=== PATIENT | female | born 1945 | race Caucasian/White ===

== ENCOUNTER → 2019-06-01 09:54 | Outpatient (BNVA) | payer MEDICARE, OTHER, SELFPAY | PROVIDERS: Family Provider Nurse Practitioner Family; PCP Nurse Practitioner Family; Visit Provider Registered Nurse | DX: Z79.4 Long term (current) use of insulin (principal); E11.9 Type 2 diabetes mellitus without complications | CPT/HCPCS: 80053; 83036 ==

== ENCOUNTER → 2019-06-16 09:24 | Outpatient (BNVA) | payer MEDICARE, OTHER, SELFPAY | PROVIDERS: Family Provider Nurse Practitioner Family; PCP Nurse Practitioner Family; Visit Provider Family Medicine | DX: E83.52 Hypercalcemia (principal); I10 Essential (primary) hypertension; R74.8 Abnormal levels of other serum enzymes; E03.9 Hypothyroidism, unspecified; Z11.59 Encounter for screening for other viral diseases; E11.69 Type 2 diabetes mellitus with other specified complication; E78.2 Mixed hyperlipidemia; E11.65 Type 2 diabetes mellitus with hyperglycemia; R79.89 Other specified abnormal findings of blood chemistry | CPT/HCPCS: 80053; 84439; 84443; 84481; 86803 ==

== ENCOUNTER → 2019-09-21 18:00 | Outpatient (BNVA) | payer MEDICARE, OTHER, SELFPAY | PROVIDERS: Family Provider Nurse Practitioner Family; PCP Registered Nurse; Visit Provider Family Medicine | DX: R74.8 Abnormal levels of other serum enzymes (principal); E11.65 Type 2 diabetes mellitus with hyperglycemia; E78.00 Pure hypercholesterolemia, unspecified; I10 Essential (primary) hypertension; E03.9 Hypothyroidism, unspecified; Z79.01 Long term (current) use of anticoagulants | CPT/HCPCS: 80053; 83036; 85610 ==

== ENCOUNTER 2019-12-09 10:05 | Inpatient (IN) | payer MEDICARE, OTHER, SELFPAY ==
[2019-12-09] VITALS (12 sets, daily range): BP systolic 104–159; BP diastolic 52–75; PULSE 66–80; RESP 15–18; TEMP 36.7–37.1; O2SAT 92–98; BMI 30.7
--- NOTE | 2019-12-09 10:06 | ED_ITS ---
HPI - Neuro Symptoms/Deficit General: Chief Complaint: Neuro Symptoms/Deficit Stated Complaint: STROKE ALERT Time Seen by Provider: 12/09/19 10:06 History of Present Illness: HPI Narrative: 74-year-old female presents to the emergency room with weakness in the right arm. She had previous had a stroke in July 2015 she went to bed last night around 10 PM and her normal self woke up this morning unable to move the right arm and some generalized right-sided w eakness. On presentation CT initially was done. Onset (ago): hour(s) Time: 10:00 Last Observed Normal: 22:00 Location: speech, dysarthria and right arm History of same: Yes Severity: severe Quality: weak Relieving factors: none Exacerbating factors: none Context: sudden onset (Woke up this morning) On Anticoagulants: No Associated symptoms: Deny chest pain, cough, diaphoresis, fevers/chills, headache(s), anorexia, malaise, nausea, seizures, short of breath, syncope, tingling, vertigo, vomiting, weakness or other Treatments Prior to Arrival: none Review of Systems Const: Denies: malaise or diaphoresis ENMT: Denies: throat pain, ear or mastoid pain, nasal discharge or nasal congestion Card: Denies: chest pain or syncope Resp: Denies: dyspnea, productive cough or non-productive cough GI: Denies: nausea or vomiting : Denies: flank pain, difficulty voiding, dysuria, urinary frequency or urinary urgency Skin/Breast: Denies: rash or pruritus Neuro: Denies: headache(s) or vertigo PFSH ED PFSH: Medical History Combined hyperlipidemia associated with type 2 diabetes mellitus Diabetes History of CVA (cerebrovascular accident) Hypertension Surgical History Hx of bladder repair surgery Hx of section Hx of cholecystectomy Hx of hysterectomy Family History Mother Clotting disorder Diabetes Cancer Father Cancer Mother Arthritis Social History Smoking and tobacco status: former smoker Quit status (tobacco): has quit using tobacco Year quit tobacco: 1988 Second hand smoke exposure: No Alcohol intake: never Desire information about alcohol rehabilitation?: No Desire information about substance/drug rehabilitation?: No Current occupational status: retired History of recent travel: No NIH stroke score NIHSS: Level Of Consciousness - 1a: 0 Level Of Consciousness Questions - 1b: Both Correct Level Of Consciousness Commands - 1c: Both Correct Best Gaze - 2: Normal Visual Agee - 3: No Visual Loss Facial Palsy - 4: Minor Paralysis Motor Arm Right - 5: No Effort Against [place] Motor Arm Left - 5: No Drift Motor Leg Right - 6: No Drift Motor Leg Left - 6: No Drift Limb Ataxia - 7: Present In One Limb Sensory - 8: Normal Best Language - 9: No Aphasia Dysarthia - 10: Mild/Moderate Dysarthia Extinction And Inattention - 11: 0 Score: Total Score: 6 Physical Exam Const: COMMON NORMALS: average body habitus GENERAL APPEARANCE: cooperative, comfortable, well kempt and well developed ORIENTATION/CONSCIOUSNESS: Yes awake HENMT: COMMON NORMALS: normocephalic, atraumatic and EAC's normal HEAD & SCALP: normocephalic and atraumatic EXTERNAL AUDITORY CANAL: EAC's normal Eye: COMMON NORMALS: Equal, round and reactive pupils present, EOMs intact bilaterally, conjunctivae normal and no scleral icterus CONJUNCTIVA: Yes conjunctivae normal PUPIL: Yes Equal, round and reactive pupils present Neck/C-Spine: COMMON NORMALS: full ROM, no lymphadenopathy, supple and Thyroid normal THYROID: Thyroid normal and asymmetrical Lymph: LYMPHATIC: no lymphadenopathy noted Resp: COMMON NORMALS: normal respiratory effort, No retractions, No use of accessory muscles and clear to auscultation bilaterally AUSCULTATION: clear to auscultation bilaterally Cardio: COMMON NORMALS: regular rate and regular rhythm RATE: regular rate RHYTHM: regular rhythm HEART SOUNDS: no murmurs GI: COMMON NORMALS: Normal to inspection, nondistended, normoactive bowel sounds present, Soft to palpation and No hepatosplenomegaly present PALPATION: Yes Soft to palpation and Yes No hepatosplenomegaly present : COMMON NORMALS: Yes no CVA tenderness BLADDER/KIDNEY EXAM: Yes no CVA tenderness Back/Pelvis: COMMON NORMALS: no CVA tenderness LUMBAR SPINE/LOWER BACK: Yes normal to inspection Extremity: COMMON NORMALS: no clubbing, cyanosis or edema, no calf tenderness and no pedal edema NARRATIVE EXTREMITY EXAM: Weakness in the right arm. Arm is essentially flail with no attempt against gravity or no evidence of carton forming machine adjuster strength. Psych: APPEARANCE: Yes well kempt Skin: COMMON NORMALS: no rashes or lesions noted and turgor normal GENERAL SKIN EXAM: no rashes or lesions noted and turgor normal Course Vital Signs: Vital signs: Vital Signs Temperature 98.5 F 12/10/19 11:53 Pulse Rate 88 12/10/19 11:53 Respiratory Rate 17 12/10/19 11:53 Blood Pressure 121/68 12/10/19 11:53 Pulse Oximetry 92 12/10/19 11:53 MDM - Neuro Symptoms/Deficit MDM Narrative: Medical decision making narrative: Discussed with hospitalist discussed Dr. Sosa she is not a candidate for any kind intervention will admit her for evaluation of extent of new deficits and potential causes. Lab Data: Labs: Lab Results 12/09/19 12/09/19 12/09/19 Range/Units 09:45 09:45 09:45 WBC 6.6 (4.0-10.0) 10^3/ uL RBC 4.22 (4.1-5.3) 10^6/u L Hgb 13.6 (11.5-15.3) g/dL Hct 41.8 (37.0-47.0) % MCV 99.1 H (81-99) fL MCH 32.2 (28.0-34.0) pg MCHC 32.5 (30.0-36.0) g/dL RDW 13.0 (12.1-15.1) % Plt Count 328 (130-400) 10^3/c mm MPV 10.7 H (7.4-10.4) fL Neut % (Auto) 51.3 % Lymph % (Auto) 24.7 % [place] % (Auto) 6.3 % Eos % (Auto) 14.5 % Baso % (Auto) 1.7 % Neut # (Auto) 3.40 (1.8-7.7) 10^3/u L Lymph # (Auto) 1.6 (0.8-4.8) 10^3/u L [place] # (Auto) 0.4 (0.2-0.9) 10^3/u L Eos # (Auto) 1.0 H (0.0-0.8) 10^3/u L Baso # (Auto) 0.1 (0.0-0.1) 10^3/u L Nucleated RBC % (a uto) 0 % Nucleated RBCs # 0.0 /100WBC PT 12.50 (12.1-14.9) SECO NDS INR 0.91 (0.8-1.2) APTT 23.9 (23.9-36.7) SECO NDS Sodium 141 (136-145) mmol/L Potassium 4.4 (3.5-5.1) mmol/L Chloride 105 (98-107) mmol/L Carbon Dioxide 24 (22-29) mmol/L Anion Gap 16.4 (5-19) BUN 19 (8-23) mg/dL Creatinine 1.2 H (0.5-0.9) mg/dL GFR Calculation Not Reportable Glucose 197 H (65-115) mg/dL POC Glucose (70-110) mg/dL Calculated Osmolal ity 294 (285-295) mOsm/k g Calcium 9.9 (8.5-10.5) mg/dL Total Bilirubin 0.3 (0.15-1.2) mg/dL AST 54 H (0-32) U/L ALT 49 H (0-33) U/L Alkaline Phosphata se 62 (35-105) IU/L Total Protein 7.3 (6.6-8.7) g/dL Albumin 4.3 (3.5-5.2) g/dL Globulin 3.0 (1.3-4.6) g/dL TSH (0.27-4.20) uIU/ mL 12/09/19 12/09/19 Range/Units 09:45 10:47 WBC (4.0-10.0) 10^3/ uL RBC (4.1-5.3) 10^6/u L Hgb (11.5-15.3) g/dL Hct (37.0-47.0) % MCV (81-99) fL MCH (28.0-34.0) pg MCHC (30.0-36.0) g/dL RDW (12.1-15.1) % Plt Count (130-400) 10^3/c mm MPV (7.4-10.4) fL Neut % (Auto) % Lymph % (Auto) % [place] % (Auto) % Eos % (Auto) % Baso % (Auto) % Neut # (Auto) (1.8-7.7) 10^3/u L Lymph # (Auto) (0.8-4.8) 10^3/u L [place] # (Auto) (0.2-0.9) 10^3/u L Eos # (Auto) (0.0-0.8) 10^3/u L Baso # (Auto) (0.0-0.1) 10^3/u L Nucleated RBC % (a uto) % Nucleated RBCs # /100WBC PT (12.1-14.9) SECO NDS INR (0.8-1.2) APTT (23.9-36.7) SECO NDS Sodium (136-145) mmol/L Potassium (3.5-5.1) mmol/L Chloride (98-107) mmol/L Carbon Dioxide (22-29) mmol/L Anion Gap (5-19) BUN (8-23) mg/dL Creatinine (0.5-0.9) mg/dL GFR Calculation Glucose (65-115) mg/dL POC Glucose 200 (70-110) mg/dL Calculated Osmolal ity (285-295) mOsm/k g Calcium (8.5-10.5) mg/dL Total Bilirubin (0.15-1.2) mg/dL AST (0-32) U/L ALT (0-33) U/L Alkaline Phosphata se (35-105) IU/L Total Protein (6.6-8.7) g/dL Albumin (3.5-5.2) g/dL Globulin (1.3-4.6) g/dL TSH 4.71 H (0.27-4.20) uIU/ mL Discharge Plan Discharge Admit Provider: Imelda Sharma Condition: Stable Discharge Orders: Discharge Order (Routine); Ordered 12/10/19 Ordered By: Imelda Sharma Discharge Diet: Cardiac and Diabetic Discharge Activity: Increase activity as tolerated Discharge Date/Time: 12/09/19 12:33 Coding Level of Care Code ED Automation Engineering Technician for Chg Fwd Exam Comprehensive
--- NOTE | 2019-12-09 10:10 | CT_ITS ---
WS: [id number] CT HEAD NONCONTRAST HISTORY: POSS CVA TECHNIQUE: Contiguous axial imaging performed through the brain in 2.5 mm imaging. Bone and soft tiss ue windows. Sagittal and coronal reformats reviewed. All CT scans at [facility] use at ast one of these dose optimization techniques: automated exposure control; mA and/or kV adjustment pe r patient size (includes targeted exams where dose is matched to clinical indication); or iterative r econstruction. DLP: 751.12 mGy-cm. COMPARISON: 04/17/2018 No acute intracranial hemorrhage, midline shift or mass effect. Mild atrophy and mild chronic ischemic disease. Prior lacunar infarct along the LEFT centrum semioval e ovale. Ventricles: Ventricles are very mildly prominent and similar to the prior examination. Paranasal sinuses: As visualized are clear. Mastoid air cells: Well pneumatized. Calvarium and scalp: Skull is intact with no soft tissue edema or swelling. CT/CT head wo con* [id number] IMPRESSION: 1. No acute intracranial hemorrhage or edema. 2. Mild atrophy and chronic ischemic disease and LEFT centrum semiovale lacuna r infarct. Notified Johnny Terrell DO at 12/09/2019 10:19 AM.
--- NOTE | 2019-12-09 10:24 | CT_ITS ---
WS: [id number] CT ANGIOGRAM CEREBRAL AND CAROTID ARTERIES HISTORY: POSS CVA TECHNIQUE: CT angiogram is performed of the carotid and cerebral arteries. During arterial injection imaging is obtained from the skull vertex to the aortic arch in 1.25 mm imaging. Coronal and sagittal reformats are submitted. Additional multi planar reformats of the carotid and cerebral arteries are submitted, MIP imaging also reviewed. NASCET criteria utilized. All CT scans at [facility] use at least one of these dose optimization techniques: automated exposure control; mA and/or kV ad justment per patient size (includes targeted exams where dose is matched to clinical indication); or iterative reconstruction. CONTRAST: Omnipaque 350; 95 mL IV. DLP: 2338.58 mGy.cm COMPARISON: 07/14/2015 Carotid Angiogram: Right carotid: Common carotid artery: Arises normally from the innominate artery. No significant plaque or stenosis. Internal carotid artery: Minimal atherosclerotic plaque. Mild atherosclerotic plaque with stenosis le ss than 16%. External carotid artery: Patent. Left carotid: Common carotid artery: Arises normally from the aorta. No significant plaque or stenosis. Internal carotid artery: Small amount of plaque which is noncalcified in the proximal ICA. Stenosis c alculated at 29%. External carotid artery: Patent. Right vertebral artery: Unremarkable. Left vertebral artery: Unremarkable. Arises normally from the subclavian artery. Subclavian arteries: No stenosis or significant abnormality. Upper thorax: Normal. Thyroid gland: Normal. Osseous structures: Moderate degenerative spondylitic changes in the cervical spine. CEREBRAL ANGIOGRAM: Intracranial vertebral arteries: Normal with no significant atherosclerosis. Basilar artery: No significant stenosis or occlusion. No aneurysm. Intracranial Internal carotid arteries: Demonstrates no significant stenosis or plaque. Middle cerebral arteries: Normal. Anterior cerebral arteries and ACOM: Normal. Posterior cerebral arteries and PCOM's: Normal. Dural venous sinuses are normally enhancing. Mastoid air cells: Normal. Paranasal sinuses: Minimal maxillary sinusitis. Calvarium: Normal. CT/CT angio headneck* [id number] IMPRESSION: 1. No significant carotid artery stenosis. 2. Mild atherosclerotic plaque in the proximal extracranial carotid arteries. LEFT ICA stenosis 29%. 3. Unremarkable [place].
[2019-12-09] MEDS: iodixanol 320 mg/mL 100mL Btl IV (10:41)
[2019-12-09 10:57] LABS: Glucose Point of Care 200 mg/dL (70-110)
--- NOTE | 2019-12-09 10:57 | ECG_ITS ---
[facility] Test Date: 2019-12-09 Pat Name: Carol Ellis Department: Room: Gender: Female Hvac Technician: : 1945 Requested By: Johnny Rodriguez Order Number: [id number] Rick MD: Selam Sommer M.D. Measurements Intervals [place] Rate: 70 P: 56 OK: 180 QRS: 59 QRSD: 90 T: 59 QT: 417 QTc: 452 Interpretive Statements SINUS RHYTHM SEPTAL MYOCARDIAL INFARCTION , OF INDETERMINATE AGE [40+ ms Q WAVE IN V1/V2] Compared to ECG 07/14/2015 11:17:52 Myocardial infarct finding now present Electronically Signed On 12-09-2019 18:50:30 CDT by Selam Sommer M.D. [email or web address] [email or web address] county [id number] f
[2019-12-09 11:10] LABS: Basophils # 0.1 10^3/uL (0.0-0.1); Basophils % 1.7 %; Eosinophils % 14.5 %; Hematocrit 41.8 % (37.0-47.0); Hemoglobin 13.6 g/dL (11.5-15.3); INR 0.91 (0.8-1.2); Lymphocytes # 1.6 10^3/uL (0.8-4.8); Lymphocytes % 24.7 %; Mean Corpuscular HGB Conc 32.5 g/dL (30.0-36.0); Mean Corpuscular Hemoglobin 32.2 pg (28.0-34.0); Mean Corpuscular Volume 99.1 fL (81-99); Mean Platelet Volume 10.7 fL (7.4-10.4); Monocytes # 0.4 10^3/uL (0.2-0.9); Monocytes % 6.3 %; Neutrophils % 51.3 %; Nucleated Red Blood Cells % 0 %; Partial Thromboplastin Time 23.9 SECONDS (23.9-36.7); Platelet Count 328 10^3/cmm (130-400); Red Blood Count 4.22 10^6/uL (4.1-5.3); White Blood Count 6.6 10^3/uL (4.0-10.0)
[2019-12-09 12:10] LABS: Alanine Aminotransferase 49 U/L (0-33); Albumin Level 4.3 g/dL (3.5-5.2); Alkaline Phosphatase 62 IU/L (35-105); Anion Gap 16.4 (5-19); Aspartate Amino Transferase 54 U/L (0-32); Blood Urea Nitrogen 19 mg/dL (8-23); Calcium 9.9 mg/dL (8.5-10.5); Carbon Dioxide 24 mmol/L (22-29); Chloride 105 mmol/L (98-107); Glucose 197 mg/dL (65-115); Osmolality Calculated 294 mOsm/kg (285-295); Potassium 4.4 mmol/L (3.5-5.1); Sodium 141 mmol/L (136-145); Total Bilirubin 0.3 mg/dL (0.15-1.2); Total Protein 7.3 g/dL (6.6-8.7)
[2019-12-09 12:46] LABS: Amphetamines Screen Urine Negative (Negative); Barbiturates Screen Urine Negative (Negative); Benzodiazepines Screen Urine Negative (Negative); Cocaine Screen Urine Negative (Negative); Opiate Screen Urine Positive (Negative); PCP Screen Urine Negative (Negative); THC Screen Urine Negative (Negative); Urine Appearance Clear (CLEAR); Urine Color Yellow (Yellow)
[2019-12-09 12:47] LABS: Add Urine Microscopic? YES; Bilirubin Urine Neg (NEGATIVE); Blood Urine Neg (Negative); Glucose Urine UA Norm (Normal); Ketones Urine Negative (Negative); Leukocyte Esterase Urine Negative (Negative); Nitrate Urine Positive (Negative); Protein Urine Neg (Negative); Urobilinogen Urine Neg (Negative); pH Urine 5 (5-7)
[2019-12-09 12:48] LABS: Add Urine Culture? Yes; Bacteria Urine 2+; Squamous Epithelial Cell Urine 0-4 (0-5)
--- NOTE | 2019-12-09 16:02 | PM.HP ---
Providers/Chief Complaint Admitting Physician: Imelda Sharma DO Primary Care Provider: DAKOTAH Pierce Chief Complaint: STROKE ALERT History of Present Illness Carol Ellis is a 74 year old female with a past medical history of diabetes, hypothyroidism, hypertension and history of CVA that presented to the emergency department today for right-sided weakness. She reported that she went to bed last night with no symptoms woke up this morning and had numbness and tingling in her right hand and difficulty moving her right hand. She stated that she had a stroke 4 years ago with right-sided deficits. She stated that she did make good recovery at that time. Reports that she lives at home by herself. Has not had any recent illness, no fevers or chills. No recent adjustments in medication. Reports her blood pressures have been under good control. She denies any sick contacts, no exposure to anyone under investigation for COVID-19, no exposure to anyone positive for COVID-19. Patient denies any headache or vision changes. Patient was seen and evaluated today in the emergency department noted to have concern for stroke therefore stroke team was activated. Patient's NIH score was 6 but due to her last known well being over 12 hours ago she was not a candidate for TPA. Patient had a CTA of the head and neck performed and no evidence of any obstruction that required thrombectomy. Neurology consultation was performed in the emergency department. Review of Systems Const: Denies: fever(s) or chills Eyes: Denies: change in vision ENMT: Denies: nasal congestion Card: Denies: chest pain, palpitations or edema Resp: Denies: dyspnea, productive cough or hemoptysis GI: Denies: abdominal pain, nausea, vomiting, diarrhea, constipation, hematochezia or melena : Denies: dysuria or hematuria Musc: Denies: extremity pain or muscle cramps Skin/Breast: Denies: rash or new lesions Neuro: Reports: numbness in extremities, weakness in extremities, sensory changes and other (Right arm paresthesias and weakness); Denies: headache(s), difficulty walking, dizziness, confusion, behavioral changes, Slurred speech present or difficulty communicating thoughts Psych: Denies: anxiety or depression Endo: Denies: polyuria or hot flashes Tony/Lymph: Denies: easy bruising or easy bleeding Medications/Allergies Home Medications Medication Instructions Recorded Confirmed Last Taken Type cholecalciferol (vitamin D3) 100 4,000 unit PO DAILY cap 04/07/19 12/09/19 12/08/19 History mcg (4,000 unit) capsule nitroglycerin 0.4 mg sublingual 0.4 mg SUBLINGUAL Q5M PRN 04/07/19 12/09/19 Unknown History tablet amlodipine 5 mg tablet 5 mg PO DAILY 90 Days #90 tab 09/21/19 12/09/19 12/08/19 Rx levothyroxine 88 mcg tablet 88 mcg PO DAILY 90 Days #90 tab 09/21/19 12/09/19 12/08/19 Rx lisinopril 30 mg tablet 30 mg PO DAILY 90 Days #90 tab 09/21/19 12/09/19 12/08/19 Rx metformin 1,000 mg tablet 1,000 mg PO BID 90 Days #180 tab 09/21/19 12/09/19 12/08/19 Rx metoprolol succinate 25 mg 25 mg PO DAILY 90 Days #90 tab 09/21/19 12/09/19 12/08/19 Rx tablet,extended release 24 hr Calcium 500 500 mg PO DAILY 12/09/19 12/09/19 12/08/19 History aspirin [Aspir-81] 162 mg PO BEDTIME 12/09/19 12/09/19 12/08/19 History dulaglutide [Trulicity] See Rx Instructions .ROUTE .COMPLEX 12/09/19 12/09/19 Unknown History fenofibrate nanocrystallized 145 mg PO DAILY 12/09/19 12/09/19 12/08/19 History insulin glargine [Basaglar KwikPen 13 unit SUBCUT BEDTIME 12/09/19 12/09/19 12/08/19 History U-100 Insulin] potassium gluconate 595 mg PO DAILY 12/09/19 12/09/19 12/08/19 History simvastatin 40 mg PO QPM 12/09/19 12/09/19 12/08/19 History tramadol 50 mg PO DAILY PRN 12/09/19 12/09/19 Unknown History Allergies Allergy/AdvReac Type Severity Reaction Status Date / Time Sulfa (Sulfonamide Allergy Intermediate swelling Verified 12/09/19 11:52 Antibiotics) PFSH Acute PFSH: Medical History Combined hyperlipidemia associated with type 2 diabetes mellitus Diabetes History of CVA (cerebrovascular accident) Hypertension Surgical History Hx of bladder repair surgery Hx of section Hx of cholecystectomy Hx of hysterectomy Family History Mother Clotting disorder Diabetes Cancer Father Cancer Mother Arthritis Social History Smoking and tobacco status: former smoker Quit status (tobacco): has quit using tobacco Year quit tobacco: 1988 Second hand smoke exposure: No Alcohol intake: never Desire information about alcohol rehabilitation?: No Desire information about substance/drug rehabilitation?: No Current occupational status: retired History of recent travel: No Vitals/I&O/Wt Last Vital Signs Temp 98.0 F 12/09/19 13:00 Pulse 77 12/09/19 13:00 Resp 16 12/09/19 13:00 BP 144/66 12/09/19 13:00 Pulse Ox 95 12/09/19 13:00 Weight last 48 hrs Weight 86.183 kg Physical Exam Const: COMMON NORMALS: patient oriented x3 and alert GENERAL APPEARANCE: cooperative ORIENTATION/CONSCIOUSNESS: Yes awake, Yes oriented to person, Yes oriented to place and Yes oriented to time HENMT: COMMON NORMALS: normocephalic and atraumatic HEAD & SCALP: normocephalic and atraumatic Eye: COMMON NORMALS: Equal, round and reactive pupils present PUPIL: Yes Equal, round and reactive pupils present Neck/C-Spine: COMMON NORMALS: supple GENERAL: Yes normal visual inspection Resp: COMMON NORMALS: normal respiratory effort and clear to auscultation bilaterally EFFORT & INSPECTION: Yes able to speak in complete sentences AUSCULTATION: clear to auscultation bilaterally, no rhonchi and no wheezes Cardio: COMMON NORMALS: regular rate, regular rhythm and No murmurs present (Cardio) RATE: regular rate RHYTHM: regular rhythm GI: COMMON NORMALS: Soft to palpation and non-tender INSPECTION: No abdominal distension AUSCULTATION: Yes normoactive bowel sounds PALPATION: Yes Soft to palpation Extremity: COMMON NORMALS: no clubbing, cyanosis or edema and no calf tenderness Neuro: COMMON NORMALS: patient oriented x3 SENSORIUM/ORIENTATION: Yes alert, Yes oriented to person, Yes oriented to place and Yes oriented to time COORDINATION/BALANCE: No [id number] test normal (Unable to perform [id number]-im-[id number] testing due to weakness in the right upper extremity) and chyz-[id number] test normal SPEECH: speech normal GAIT: Yes Unable to assess gait SENSORY EXAM: Yes extremities (Right upper extremity with decreased sensation in the hand) MOTOR EXAM: Other motor observations present (Decreased strength in the right upper extremity, 1 out of 5 strength in the right upper extremity, 5 out of 5 in the left) Psych: COMMON NORMALS: mental status grossly normal and cooperative Skin: COMMON NORMALS: no rashes or lesions noted GENERAL SKIN EXAM: no rashes or lesions noted Data : 12/09/19 09:45 12/09/19 09:45 CT Head: I personally reviewed and interpreted this imaging study as follows: Radiologist's impression: IMPRESSION: 1. No acute intracranial hemorrhage or edema. 2. Mild atrophy and chronic ischemic disease and LEFT centrum semiovale lacunar infarct. Other CT: I personally reviewed and interpreted this imaging study as follows: Radiologist's impression: IMPRESSION: 1. No significant carotid artery stenosis. 2. Mild atherosclerotic plaque in the proximal extracranial carotid arteries. LEFT ICA stenosis 29%. 3. Unremarkable [place]. A&P Assessment and plan (1) CVA (cerebral vascular accident): Acute CVA with right-sided deficit. Right-sided upper extremity weakness and paresthesias Neurology consulted in the ED with stroke activation, however due to patient's last known well being prior to going to bed she is not a candidate for TPA. NIH of 6 Patient had CTA of the head and neck as noted above, no requirement for thrombectomy Continue to allow permissive hypertension for the next 24 hours Telemetry Physical therapy, occupational therapy and speech therapy ordered Continue with gentle IV fluids Continue with serial neurologic checks Continue aspirin, statin, Plavix Status: Acute (2) Hypertension: Hold home amlodipine and lisinopril at this time and allow permissive hypertension for the next 24 hours Status: Chronic Qualifiers: Hypertension type: essential hypertension Qualified Code(s): I10 - Essential (primary) hypertension (3) Diabetes: We will check hemoglobin A1c Hold home metformin due to contrast administration Placed on low-dose sliding scale insulin as needed Status: Acute Qualifiers: Diabetes mellitus type: type 2 Diabetes mellitus halfway insulin use: without watermelon 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 use Diabetes mellitus complication status: with hyperglycemia Qualified Code(s): E11.65 - Type 2 diabetes mellitus with hyperglycemia (4) Hypothyroidism: TSH Continue on home levothyroxine 88 mcg daily Status: Acute Qualifiers: Hypothyroidism type: acquired Qualified Code(s): E03.9 - Hypothyroidism, unspecified (5) Elevated liver enzymes: Appears to be chronic in nature, no evidence of any acute underlying process Status: Acute Additional A&P Information Acute cystitis: We will place on Rocephin at this time and follow with urine culture, patient is asymptomatic but with bacteriuria will start treatment DVT prophylaxis: Lovenox Diet: N.p.o. until speech therapy evaluation CODE STATUS: Full code Attestations Medical Necessity Statement*: Patient requires hospitalization due to acute CVA, expected stay greater than 2 midnights Coding Level of Care Code Acute Pedicab Driver for [facility] Diagnoses CVA (cerebral vascular accident) I63.9 Hypertension I10 Hypertension type: essential hypertension Diabetes E11.65 Diabetes mellitus type: type 2 Diabetes mellitus halfway insulin use: without halfway use Diabetes mellitus complication status: with hyperglycemia Hypothyroidism E03.9 Hypothyroidism type: acquired Elevated liver enzymes R74.8
[2019-12-09 16:47] LABS: Thyroid Stimulating Hormone 4.71 uIU/mL (0.27-4.20)
[2019-12-09] MEDS: cefTRIAXone 1,000 MG in sodium chloride 0.9% (plus) 50 ML 100 MG IV (18:16)
[2019-12-09] MEDS: enoxaparin 40 mg/0.4 mL Syringe SUBCUT (18:17)
[2019-12-09] MEDS: clopidogrel 75 mg Tablet PO (18:17)
[2019-12-09] MEDS: sodium chloride 0.9% 1,000 ML 100 ML IV ×2 (18:17→22:21)
[2019-12-09 18:20] LABS: Glucose Point of Care 191 mg/dL (70-110)
[2019-12-09 21:35] LABS: Glucose Point of Care 237 mg/dL (70-110)
--- NOTE | 2019-12-09 21:50 | XR_ITS ---
WS: [id number] Portable AP upright chest, 12/09/2019 Clinical Data: hypoxia Comparison: PA and lateral chest, 03/21/2009. Findings: No nodules, masses or effusions are seen. The heart is normal. The pulmonary vascularity is not increased. No pneumonia or pneumothorax is seen. Monitor leads are on the chest wall. XR/XR chest 1V portable [id number] Impression: Negative chest.
[2019-12-09] MEDS: atorvastatin 40 mg Tablet PO (21:56)
[2019-12-09] MEDS: insulin glargine 100 units/1 mL 10 UNIT SUBCUT (22:13)
[2019-12-10 03:00] VITALS: BP 124/69; PULSE 73; RESP 13; TEMP 36.9; O2SAT 95
[2019-12-10 05:24] LABS: Basophils # 0.1 10^3/uL (0.0-0.1); Basophils % 1.1 %; Eosinophils # 0.9 10^3/uL (0.0-0.8); Eosinophils % 12.7 %; Hematocrit 38.4 % (37.0-47.0); Hemoglobin 12.2 g/dL (11.5-15.3); Lymphocytes # 1.6 10^3/uL (0.8-4.8); Lymphocytes % 22.4 %; Mean Corpuscular HGB Conc 31.8 g/dL (30.0-36.0); Mean Corpuscular Hemoglobin 31.4 pg (28.0-34.0); Mean Corpuscular Volume 98.7 fL (81-99); Mean Platelet Volume 10.4 fL (7.4-10.4); Monocytes # 0.4 10^3/uL (0.2-0.9); Monocytes % 5.5 %; Neutrophils # 4.14 10^3/uL (1.8-7.7); Nucleated Red Blood Cells % 0 %; Platelet Count 291 10^3/cmm (130-400); Red Blood Count 3.89 10^6/uL (4.1-5.3); White Blood Count 7.1 10^3/uL (4.0-10.0)
[2019-12-10 05:41] LABS: Chol HDL Ratio 4.96 mg/dL (0.0-4.40); Cholesterol 119 mg/dL (0-200); HDL Cholesterol 24 mg/dL (60-100); LDL Cholesterol Calculated 33 mg/dL (50-129); LDL HDL Ratio 1.38 RATIO (0.00-3.22); Triglycerides 312 mg/dL (0-150)
[2019-12-10 05:42] LABS: Anion Gap 15.3 (5-19); Blood Urea Nitrogen 15 mg/dL (8-23); Calcium 9.1 mg/dL (8.5-10.5); Carbon Dioxide 25 mmol/L (22-29); Chloride 104 mmol/L (98-107); Glucose 167 mg/dL (65-115); Osmolality Calculated 290 mOsm/kg (285-295); Potassium 4.3 mmol/L (3.5-5.1); Sodium 140 mmol/L (136-145)
--- NOTE | 2019-12-10 06:00 | USCV_ITS ---
Carol Ellis Age: 74 Gender: F : 1945 Exam Date: 12/10/2019 06:17 Ordering Phys: Imelda Sharma DO Technologist: Digna Lay Exam Location: [facility] [place] Indication: CVA BP: 124 / 69 HR: 70 Rhythm: Sinus Technical Quality: Adequate MEASUREMENTS (Male / Female) Normal Values 2D ECHO LV Diastolic Diameter PLAX 4.1 cm 4.2 - 5.9 / 3.9 - 5.3 cm LV Systolic Diameter PLAX 2.8 cm LV Chamber Size 3.1 cm IVS Diastolic Thickness 1.2 cm 0.6 - 1.0 / 0.6 - 0.9 cm IVS Systolic Thickness 1.5 cm LVPW Diastolic Thickness 1.1 cm 0.6 - 1.0 / 0.6 - 0.9 cm LVPW Systolic Thickness 1.8 cm RV Chamber Size 3.6 cm LVOT Diameter 2.0 cm LV Ejection Fraction 2D Teich 59.5 % LV Ejection Fraction MOD 2C 33.5 % LV Ejection Fraction 2C AL 38.9 % LA Diameter 3.8 cm LA Width 2.8 cm LA Height 3.5 cm RA Width 3.3 cm RA Height 4.4 cm Aorta at Sinotubular Diameter 3.1 cm M-MODE LV Diastolic Diameter MM 4.5 cm 4.2 - 5.9 / 3.9 - 5.3 cm LV Systolic Diameter MM 2.8 cm LV Ejection Fraction MM Teich 67.6 % IVS Diastolic Thickness MM 1.2 cm 0.6 - 1.0 / 0.6 - 0.9 cm IVS Systolic Thickness MM 1.4 cm LVPW Diastolic Thickness MM 1.3 cm 0.6 - 1.0 / 0.6 - 0.9 cm LVPW Systolic Thickness MM 1.7 cm RV Diastolic Diameter MM 2.4 cm Aortic Annulus Diameter 3.3 cm LA Ao Ratio MM 1.1 MV E Point Septal Separation 0.8 cm DOPPLER AV Peak Velocity 125.0 cm/s LVOT Peak Velocity 80.0 cm/s AV Area Cont Eq vti 2.2 cm squared AV Area Cont Eq pk 2.1 cm squared MV Area PHT 2.4 cm squared Mitral E to A Ratio 0.8 MV E' Velocity 62.0 cm/s Mitral E to LV E' Septal Ratio 9.4 TR Peak Velocity 189.6 cm/s TR Peak Gradient 14.4 mmHg TR Mean Velocity 144.4 cm/s TR Mean Gradient 9.0 mmHg TR Velocity Time Integral 56.0 cm TV Peak E Velocity 61.0 cm/s Right Atrial Pressure 3.0 mmHg Pulmonary Artery Systolic Pressu 17.4 mmHg PV Peak Velocity 60.0 cm/s RV Acceleration Time 0.1 s RV Ejection Time 0.3 s RV AcT/ET 0.4 FINDINGS Left Ventricle Normal left ventricular cavity size. Normal left ventricular systolic function. No regional wall motion abnormalities. Left ventricular ejection fraction is estimated at 67 %. Grade I/IV diastolic dysfunction (abnormal relaxation filling pattern), normal to mildly elevated filling pressures. Right Ventricle The right ventricle is normal in size and function. Right Atrium The right atrium is normal in size. Left Atrium The left atrium is normal in size. Mitral Valve Mildly thickened mitral valve. Mitral annular calcification. No mitral valve stenosis. Trace mitral valve regurgitation. Aortic Valve Aortic valve sclerosis without stenosis or regurgitation. Tricuspid Valve Structurally normal tricuspid valve without significant stenosis or regurgitation. Pulmonary artery systolic pressure is normal. Pulmonic Valve Structurally normal pulmonic valve without significant stenosis. There is no pulmonic regurgitation. Pericardium Normal pericardium without effusion. Aorta Normal ascending aorta dimension. CONCLUSIONS 1-Normal left ventricular cavity size. Normal left ventricular systolic function. No regional wall motion abnormalities. Left ventricular ejection fraction is estimated at 67 %. Grade I/IV diastolic dysfunction (abnormal relaxation filling pattern), normal to mildly elevated filling pressures. 2-No significant chamber abnormalities. 3-There is no pericardial effusion. 4-Pulmonary artery systolic pressure is within normal limits. 5-No significant change since the prior echocardiogram study of 11/20/2016. Selam Sommer MD (Electronically Signed) Final Date: 10 December 2019 14:11 S
[2019-12-10 06:03] LABS: Estmated Average Glucose 192; Hemoglobin A1C 8.3 % (4.0-6.0)
[2019-12-10 06:52] LABS: Glucose Point of Care 203 mg/dL (70-110)
[2019-12-10 07:00] VITALS: BP 121/68; PULSE 71; RESP 18; TEMP 36.9; O2SAT 93
--- NOTE | 2019-12-10 08:57 | PM.DCS ---
Discharge Providers Date of Admission: 12/09/19 11:41 Date of Discharge: December 10, 2019 Attending Provider at Admission: Imelda Sharma DO Attending Provider at Discharge: Imelda Sharma DO Primary Care Provider: DAKOTAH Pierce Diagnoses at Discharge Discharge Diagnosis (1) CVA (cerebral vascular accident): Status: Acute (2) Hypertension: Status: Chronic Qualifiers: Hypertension type: essential hypertension Qualified Code(s): I10 - Essential (primary) hypertension (3) Diabetes: Status: Acute Qualifiers: Diabetes mellitus type: type 2 Diabetes mellitus long term acute care registered nurse insulin use: without fci use Diabetes mellitus complication status: with hyperglycemia Qualified Code(s): E11.65 - Type 2 diabetes mellitus with hyperglycemia (4) Hypothyroidism: Status: Acute Qualifiers: Hypothyroidism type: acquired Qualified Code(s): E03.9 - Hypothyroidism, unspecified (5) Elevated liver enzymes: Status: Acute Reason for Visit Reason for Visit: STROKE ALERT Hospital Course Hospital Course: Patient is a 74-year-old female with a past medical history of hypertension, diabetes, history of CVA that presented to the emergency department for right-sided deficits. She reportedly woke up with her symptoms on 12/09/2019, last known well was greater than 12 hours prior to presentation to the emergency department. When she was seen in the emergency department she had an NIH of 6, CTA of the head was performed which did not show that she was a candidate for thrombectomy. Neurology was consulted and patient did have a stroke activation at time of arrival in the ER. She was given IV fluids allowed 24 hours of permissive hypertension and admitted to the hospital for further evaluation and treatment. She continued to improve and had resolution of her right-sided deficits, her paresthesias in the right upper extremity and decreased strength in the right upper extremity resolved. On date of discharge she was sitting up in bed and reported that she was feeling great and wanted to go home, she reported that she has a history of prior stroke, was in agreement to home health. Discussed with her concern with plan for adjustment in medications, she verbalized understanding and agreed with plan. On date of discharge she denied any chest pain, no headache or vision changes, no shortness of breath, no abdominal pain, no numbness or tingling, no decrease in strength Physical Exam Const: COMMON NORMALS: patient oriented x3 and alert GENERAL APPEARANCE: cooperative ORIENTATION/CONSCIOUSNESS: Yes awake, Yes oriented to person, Yes oriented to place and Yes oriented to time HENMT: COMMON NORMALS: normocephalic and atraumatic HEAD & SCALP: normocephalic and atraumatic Eye: COMMON NORMALS: Equal, round and reactive pupils present PUPIL: Yes Equal, round and reactive pupils present Neck/C-Spine: COMMON NORMALS: supple GENERAL: Yes normal visual inspection Resp: COMMON NORMALS: normal respiratory effort and clear to auscultation bilaterally EFFORT & INSPECTION: Yes able to speak in complete sentences AUSCULTATION: clear to auscultation bilaterally, no rhonchi and no wheezes Cardio: COMMON NORMALS: regular rate, regular rhythm and No murmurs present (Cardio) RATE: regular rate RHYTHM: regular rhythm GI: INSPECTION: No abdominal distension AUSCULTATION: Yes normoactive bowel sounds Extremity: COMMON NORMALS: no clubbing, cyanosis or edema and no calf tenderness Neuro: COMMON NORMALS: patient oriented x3, CN's II-XII intact bilaterally, moves all extremities, no focal motor deficits, no sensory deficits noted and gait normal SENSORIUM/ORIENTATION: Yes alert, Yes oriented to person, Yes oriented to place and Yes oriented to time SPEECH: speech normal MOTOR EXAM: 5/5 motor strength present throughout and Pronator motor function not present Psych: COMMON NORMALS: mental status grossly normal and cooperative Skin: COMMON NORMALS: no rashes or lesions noted GENERAL SKIN EXAM: no rashes or lesions noted Discharge Data Data Completed and Pending: Completed Studies During Hospitalization Category Date Time Status CT angio headneck * [id number] Urge nt Cat Scan 12/09/19 10:[address] head wo con* [id number] Urgent Cat Scan 12/09/19 10:10 Completed XR chest 1V susan ble [id number] Routine Exams 12/09/19 21:50 Completed Pending at discharge Category Date Time Status Urine Culture Sta t Lab 12/09/19 12:28 Received CV echo complete* [id number] Routine Ultrasound 12/10/19 06:00 Ordered Labs from last 24 hours 12/10/19 12/10/19 12/10/19 06:36 04:35 04:35 WBC RBC Hgb Hct MCV MCH MCHC RDW Plt Count MPV Neut % (Auto) Lymph % (Auto) Amador % (Auto) Eos % (Auto) Baso % (Auto) Neut # (Auto) Lymph # (Auto) Amador # (Auto) Eos # (Auto) Baso # (Auto) Nucleated RBC % (a uto) Nucleated RBCs # PT INR APTT Sodium Potassium Chloride Carbon Dioxide Anion Gap BUN Creatinine GFR Calculation Glucose POC Glucose 203 Estimat Average Gl ucose 192 Hemoglobin A1c 8.3 H Calculated Osmolal ity Calcium Total Bilirubin AST ALT Alkaline Phosphata se Total Protein Albumin Globulin Triglycerides 312 H Cholesterol 119 LDL Cholesterol, C alc 33 L HDL Cholesterol 24 L LDL/HDL Ratio 1.38 Cholesterol/HDL Ra deepika 4.96 H TSH Urine Color Urine Appearance Urine pH Ur Specific Gravit y Urine Protein Urine Glucose (UA) Urine Ketones Urine Blood Urine Nitrate Urine Bilirubin Urine Urobilinogen Ur Leukocyte Destini ase Urine RBC Urine WBC Ur Squamous Epith Cells Amorphous Sediment Urine Bacteria Urine Opiates Scre en Ur Barbiturates Sc reen Ur Phencyclidine S crn Ur Amphetamines Sc reen U Benzodiazepines Scrn Urine Cocaine Scre en U Marijuana (THC) Screen 12/10/19 12/10/19 12/09/19 04:35 04:35 21:19 WBC 7.1 RBC 3.89 L Hgb 12.2 Hct 38.4 MCV 98.7 MCH 31.4 MCHC 31.8 RDW 13.0 Plt Count 291 MPV 10.4 Neut % (Auto) 58.0 Lymph % (Auto) 22.4 Amador % (Auto) 5.5 Eos % (Auto) 12.7 Baso % (Auto) 1.1 Neut # (Auto) 4.14 Lymph # (Auto) 1.6 Amador # (Auto) 0.4 Eos # (Auto) 0.9 H Baso # (Auto) 0.1 Nucleated RBC % (a uto) 0 Nucleated RBCs # 0.0 PT INR APTT Sodium 140 Potassium 4.3 Chloride 104 Carbon Dioxide 25 Anion Gap 15.3 BUN 15 Creatinine 1.3 H GFR Calculation Not Reportable Glucose 167 H POC Glucose 237 Estimat Average Gl ucose Hemoglobin A1c Calculated Osmolal ity 290 Calcium 9.1 Total Bilirubin AST ALT Alkaline Phosphata se Total Protein Albumin Globulin Triglycerides Cholesterol LDL Cholesterol, C alc HDL Cholesterol LDL/HDL Ratio Cholesterol/HDL Ra deepika TSH Urine Color Urine Appearance Urine pH Ur Specific Gravit y Urine Protein Urine Glucose (UA) Urine Ketones Urine Blood Urine Nitrate Urine Bilirubin Urine Urobilinogen Ur Leukocyte Destini ase Urine RBC Urine WBC Ur Squamous Epith Cells Amorphous Sediment Urine Bacteria Urine Opiates Scre en Ur Barbiturates Sc reen Ur Phencyclidine S crn Ur Amphetamines Sc reen U Benzodiazepines Scrn Urine Cocaine Scre en U Marijuana (THC) Screen 12/09/19 12/09/19 12/09/19 18:17 12:28 12:28 WBC RBC Hgb Hct MCV MCH MCHC RDW Plt Count MPV Neut % (Auto) Lymph % (Auto) Amador % (Auto) Eos % (Auto) Baso % (Auto) Neut # (Auto) Lymph # (Auto) Amador # (Auto) Eos # (Auto) Baso # (Auto) Nucleated RBC % (a uto) Nucleated RBCs # PT INR APTT Sodium Potassium Chloride Carbon Dioxide Anion Gap BUN Creatinine GFR Calculation Glucose POC Glucose 191 Estimat Average Gl ucose Hemoglobin A1c Calculated Osmolal ity Calcium Total Bilirubin AST ALT Alkaline Phosphata se Total Protein Albumin Globulin Triglycerides Cholesterol LDL Cholesterol, C alc HDL Cholesterol LDL/HDL Ratio Cholesterol/HDL Ra deepika TSH Urine Color Yellow Urine Appearance Clear Urine pH 5 Ur Specific Gravit y 1.010 Urine Protein Neg Urine Glucose (UA) Norm Urine Ketones Negative Urine Blood Neg Urine Nitrate Positive H Urine Bilirubin Neg Urine Urobilinogen Neg Ur Leukocyte Destini ase Negative Urine RBC None Urine WBC 5-10 H Ur Squamous Epith Cells 0-4 H Amorphous Sediment Not Reportable Urine Bacteria 2+ H Urine Opiates Scre en Positive H Ur Barbiturates Sc reen Negative Ur Phencyclidine S crn Negative Ur Amphetamines Sc reen Negative U Benzodiazepines Scrn Negative Urine Cocaine Scre en Negative U Marijuana (THC) Screen Negative 12/09/19 12/09/19 12/09/19 10:47 09:45 09:45 WBC RBC Hgb Hct MCV MCH MCHC RDW Plt Count MPV Neut % (Auto) Lymph % (Auto) Amador % (Auto) Eos % (Auto) Baso % (Auto) Neut # (Auto) Lymph # (Auto) Amador # (Auto) Eos # (Auto) Baso # (Auto) Nucleated RBC % (a uto) Nucleated RBCs # PT INR APTT Sodium 141 Potassium 4.4 Chloride 105 Carbon Dioxide 24 Anion Gap 16.4 BUN 19 Creatinine 1.2 H GFR Calculation Not Reportable Glucose 197 H POC Glucose 200 Estimat Average Gl ucose Hemoglobin A1c Calculated Osmolal ity 294 Calcium 9.9 Total Bilirubin 0.3 AST 54 H ALT 49 H Alkaline Phosphata se 62 Total Protein 7.3 Albumin 4.3 Globulin 3.0 Triglycerides Cholesterol LDL Cholesterol, C alc HDL Cholesterol LDL/HDL Ratio Cholesterol/HDL Ra deepika TSH 4.71 H Urine Color Urine Appearance Urine pH Ur Specific Gravit y Urine Protein Urine Glucose (UA) Urine Ketones Urine Blood Urine Nitrate Urine Bilirubin Urine Urobilinogen Ur Leukocyte Destini ase Urine RBC Urine WBC Ur Squamous Epith Cells Amorphous Sediment Urine Bacteria Urine Opiates Scre en Ur Barbiturates Sc reen Ur Phencyclidine S crn Ur Amphetamines Sc reen U Benzodiazepines Scrn Urine Cocaine Scre en U Marijuana (THC) Screen 12/09/19 12/09/19 09:45 09:45 WBC 6.6 RBC 4.22 Hgb 13.6 Hct 41.8 MCV 99.1 H MCH 32.2 MCHC 32.5 RDW 13.0 Plt Count 328 MPV 10.7 H Neut % (Auto) 51.3 Lymph % (Auto) 24.7 Amador % (Auto) 6.3 Eos % (Auto) 14.5 Baso % (Auto) 1.7 Neut # (Auto) 3.40 Lymph # (Auto) 1.6 Amador # (Auto) 0.4 Eos # (Auto) 1.0 H Baso # (Auto) 0.1 Nucleated RBC % (a uto) 0 Nucleated RBCs # 0.0 PT 12.50 INR 0.91 APTT 23.9 Sodium Potassium Chloride Carbon Dioxide Anion Gap BUN Creatinine GFR Calculation Glucose POC Glucose Estimat Average Gl ucose Hemoglobin A1c Calculated Osmolal ity Calcium Total Bilirubin AST ALT Alkaline Phosphata se Total Protein Albumin Globulin Triglycerides Cholesterol LDL Cholesterol, C alc HDL Cholesterol LDL/HDL Ratio Cholesterol/HDL Ra deepika TSH Urine Color Urine Appearance Urine pH Ur Specific Gravit y Urine Protein Urine Glucose (UA) Urine Ketones Urine Blood Urine Nitrate Urine Bilirubin Urine Urobilinogen Ur Leukocyte Destini ase Urine RBC Urine WBC Ur Squamous Epith Cells Amorphous Sediment Urine Bacteria Urine Opiates Scre en Ur Barbiturates Sc reen Ur Phencyclidine S crn Ur Amphetamines Sc reen U Benzodiazepines Scrn Urine Cocaine Scre en U Marijuana (THC) Screen Vitals: Last Vital Signs Temp 98.5 F 12/10/19 07:00 Pulse 71 09/03/20 07:00 Resp 18 12/10/19 07:00 BP 121/68 12/10/19 07:00 Pulse Ox 93 12/10/19 07:00 Discharge Plan Discharge Patient Disposition: Home Health Service Condition: Stable Prescriptions: New atorvastatin 40 mg Tablet 40 mg PO BEDTIME 30 Days Qty: 30 RF: 0 clopidogrel 75 mg Tablet 75 mg PO DAILY 30 Days Qty: 30 RF: 0 aspirin 81 mg Tablet,Delayed Release (Dr/Ec) 81 mg PO DAILY 30 Days Qty: 30 RF: 0 Macrobid 100 mg capsule 100 mg PO BID 5 Days Qty: 10 RF: 0 Continued nitroglycerin [Nitrostat] 0.4 mg tablet, sublingual 0.4 mg SUBLINGUAL Q5M PRN (Reason: Chest Pain) RF: 0 cholecalciferol (vitamin D3) 4,000 unit capsule 4,000 unit PO DAILY RF: 0 metoprolol succinate 25 mg tablet extended release 24 hr 25 mg PO DAILY 90 Days Qty: 90 RF: 1 metformin 1,000 mg tablet 1,000 mg PO BID 90 Days Qty: 180 RF: 1 lisinopril 30 mg tablet 30 mg PO DAILY 90 Days Qty: 90 RF: 1 levothyroxine 88 mcg tablet 88 mcg PO DAILY 90 Days Qty: 90 RF: 2 amlodipine 5 mg tablet 5 mg PO DAILY 90 Days Qty: 90 RF: 1 potassium gluconate 595 mg (99 mg) Tablet 595 mg PO DAILY RF: 0 Trulicity 0.75 mg/0.5 mL pen injector See Rx Instructions .ROUTE .COMPLEX RF: 0 tramadol 50 mg tablet 50 mg PO DAILY PRN (Reason: pain) RF: 0 Calcium 500 500 mg calcium (1,250 mg) tablet,chewable 500 mg PO DAILY RF: 0 Basaglar KwikPen U-100 Insulin 100 unit/mL (3 mL) insulin pen 13 unit SUBCUT BEDTIME RF: 0 Discontinued simvastatin 40 mg tablet 40 mg PO QPM RF: 0 fenofibrate nanocrystallized 145 mg tablet 145 mg PO DAILY RF: 0 Aspir-81 81 mg Tablet,Delayed Release (Dr/Ec) 162 mg PO BEDTIME RF: 0 Discharge Orders: Discharge Order (Routine); Ordered 12/10/19 Ordered By: Imelda Sharma Referrals: Petra Sosa MD [Physician] - 2 weeks Mark,Laurica, CHEMIST HELPER [Primary Care Provider] - 1-3 days Discharge Diet: Cardiac and Diabetic Discharge Activity: Increase activity as tolerated Activity Restrictions/Additional Instructions: Continue with aspirin 81 mg daily, started on Plavix 75 mg daily Discontinue simvastatin and start on atorvastatin 40 mg at bedtime Discharge with medication for UTI, Macrobid for 5 days Follow-up with primary care provider in 2 to 3 days Follow-up with neurology, Dr. Sosa in 2 weeks Follow-up with home health services, physical therapy, occupational therapy and home nursing Call your physician or present to the ED for any acute illness or concern Discharge Attestations Time Spent in Discharge Care*: greater than 30 min Specific Discharge Activities: Specific discharge activities: educating patient, discussing with correctional casework specialist/social workers/dc planners and documenting/other paperwork Quality Metrics Clinical Quality Measures During this hospital stay, did patient experience: Stroke Contraindication to Antithrombotic: Antithrombotic prescribed Contraindication to Anticoagulation: Overlap treatment not indicated Contraindication to Statin: Statin prescribed Contraindication to tPA: Treatment not indicated Coding Level of Care Code Acute Assistant Women'S Rowing Coach for [facility] Fwd Exam Comprehensive Diagnoses CVA (cerebral vascular accident) I63.9 Hypertension I10 Hypertension type: essential hypertension Diabetes E11.65 Diabetes mellitus type: type 2 Diabetes mellitus fci insulin use: without fci use Diabetes mellitus complication status: with hyperglycemia Hypothyroidism E03.9 Hypothyroidism type: acquired Elevated liver enzymes R74.8
[2019-12-10] MEDS: clopidogrel 75 mg Tablet PO (09:08)
[2019-12-10] MEDS: cholecalciferol (vitamin D3) 1,000 unit Tablet 4000 UNIT PO (09:09)
[2019-12-10] MEDS: metoprolol succinate ER (24 HR) 25 mg Tablet PO (09:09)
[2019-12-10] MEDS: levothyroxine 88 mcg Tablet PO (09:09)
[2019-12-10] MEDS: aspirin 81 mg EC Tablet PO (09:10)
[2019-12-10 09:23] VITALS: PULSE 88; RESP 17; O2SAT 92
--- NOTE | 2019-12-10 11:29 | PC.CHAP ---
Pastoral Care Encounter/Spiritual Assessment Type of Contact [] Declined fern cutter visit [] Patient/Family/Request visit [] Outpatient visit [] Follow-up visit [] Physician referral [] Code/Alert [X] Routine visit [] Staff referral [] Actively dying [] Patient sleeping [] Family support [] [] Out of room [] Palliative care [] [x] Receiving care in room [] Pre-surgical visit [] Trauma [] Long length of stay [] ICU visit [] Other: Relational/Emotional Strength [x] Patient feels connected with others/family/visitors/staff [] Distress [] Loneliness/isolation [] Abandonment Spirituality of Patient [x] Person of Francisca [] Attends Scientologist of their Francisca [x] Believes in Prayer [] Reads Bible or Buddhist materials [] There are Spiritual issues to be addressed Tyre Retreader Interventions [x] Prayer [x] Active listening [x] Non-anxious presence [x] Spiritual/emotional support [] Crisis/trauma care [x] Spiritual counseling [] Bereavement support [] Provided bereavement packet [] Provided Bible/devotional materials [] Provided toy/stuffed animal, coloring book to patient or family member [] Provided Communion [] Anointing/[place] [] Salvation [x] Completed spiritual assessment [] Other: Impact on Illness or Injury [] Angry [] Fearful [] Anxious [] Often cries [] Exhaustion [] Unable to work [] Unable to attend adventism [] Unable to walk/stand [] Unable to read [] Unable to drive [] Unable to eat/drink [] Unable to sleep [] Unable to be with family [] Patient intubated [] Other: Summary Feels good getting ready to go home today Time spent with patient 10 mins
[2019-12-10 11:53] VITALS: BP 121/68; PULSE 88; RESP 17; TEMP 36.9; O2SAT 92
--- NOTE | 2019-12-10 23:12 | PC.NUTR ---
NUTR CONSULT: Consult received for heart healthy diet, stroke. 74 YOF. No diet ordered at this time. Will cont to monitor for progress.
== END 2019-12-10 10:41 | disposition home health service (06) | DRG 65 ==
LOC: ER 12:36 → MEDSURG 13:11
PROVIDERS: Family Medicine; Admitting Provider Family Medicine; PCP Registered Nurse; Visit Provider Family Medicine
DX: I63.9 Cerebral infarction, unspecified (principal); N30.00 Acute cystitis without hematuria; G83.21 Monoplegia of upper limb affecting right dominant side; R29.706 NIHSS score 6; E11.65 Type 2 diabetes mellitus with hyperglycemia; E03.9 Hypothyroidism, unspecified; I10 Essential (primary) hypertension; Z87.891 Personal history of nicotine dependence; Z79.84 Long term (current) use of oral hypoglycemic drugs
CPT/HCPCS: 12345; 36415; 36416; 70450; 70496; 70498; 71045; 80048; 80053; 80061; 80306; 81001; 82962; 83036; 84443; 85025; 85610; 85730; 87077; 87086; 87186; 92523; 92610; 93005; 93306; 96372; 97110; 97161; 99283; J0696; J1650; J1815 ×2; J7030; Q9967

== ENCOUNTER → 2019-12-21 09:22 | Outpatient (BNVA) | payer MEDICARE, OTHER, SELFPAY | PROVIDERS: PCP Registered Nurse; Referring Provider Family Medicine; Visit Provider Specialist | DX: E11.9 Type 2 diabetes mellitus without complications (principal); I10 Essential (primary) hypertension; G47.33 Obstructive sleep apnea (adult) (pediatric); Z87.891 Personal history of nicotine dependence; Z86.73 Personal history of transient ischemic attack (TIA), and cerebral infarction without residual deficits | CPT/HCPCS: 99205 ==

== ENCOUNTER → 2020-04-11 08:40 | Outpatient (BNVA) | payer MEDICARE, OTHER, SELFPAY | PROVIDERS: PCP Registered Nurse; Visit Provider Registered Nurse | DX: Z79.4 Long term (current) use of insulin; I10 Essential (primary) hypertension; E03.9 Hypothyroidism, unspecified; E11.65 Type 2 diabetes mellitus with hyperglycemia | CPT/HCPCS: 80053; 80061; 83036; 84443 ==

== ENCOUNTER → 2020-09-26 08:36 | Outpatient (BNVA) | payer MEDICARE, OTHER, SELFPAY | PROVIDERS: PCP Registered Nurse; Visit Provider Registered Nurse | DX: E03.9 Hypothyroidism, unspecified (principal); E11.9 Type 2 diabetes mellitus without complications; Z79.4 Long term (current) use of insulin; F51.02 Adjustment insomnia; I10 Essential (primary) hypertension | CPT/HCPCS: 80053; 83036; 84443 ==

== ENCOUNTER → 2021-01-19 13:37 | Outpatient (BNVA) | payer MEDICARE, OTHER, SELFPAY | PROVIDERS: PCP Registered Nurse; Visit Provider Registered Nurse | DX: I10 Essential (primary) hypertension (principal) | CPT/HCPCS: 85025 ==

== ENCOUNTER → 2021-03-23 17:02 | Outpatient (BNVA) | payer MEDICARE, OTHER, SELFPAY | PROVIDERS: PCP Registered Nurse; Visit Provider Registered Nurse | DX: M25.432 Effusion, left wrist (principal); I10 Essential (primary) hypertension; E11.9 Type 2 diabetes mellitus without complications; Z79.4 Long term (current) use of insulin | CPT/HCPCS: 80053; 83036; 85025; 85651; 86141 ==

== ENCOUNTER 2021-03-24 13:43 | Outpatient (CLI) | payer MEDICARE, OTHER, SELFPAY ==
--- NOTE | 2021-03-24 14:23 | XR_ITS ---
WS: [id number] Left wrist, 3 views, 03/24/2021 Clinical Data: M25.432 - Effusion, left wrist Comparison: Left hand, 05/31/2011. Findings: No fractures or dislocations are seen. There are small bone fragments adjacent to the triquetrum whic h were not previously present. These fragments may be result of an old injury but probably not an acu te injury. The carpal bones are intact. There is no soft tissue swelling. The distal radius and ulna are not remarkable. XR/XR wrist LT min 3V* [id number] Impression: 1. Negative for acute fracture. 2. Possible old injury to the triquetrum of the left wrist.
== END 2021-03-24 13:44 | disposition home or self-care (01) ==
PROVIDERS: PCP Registered Nurse; Visit Provider Registered Nurse
DX: M25.432 Effusion, left wrist (principal)
CPT/HCPCS: 73110

== ENCOUNTER → 2021-05-08 10:35 | Outpatient (BNVA) | payer MEDICARE, OTHER, SELFPAY | PROVIDERS: PCP Registered Nurse; Visit Provider Registered Nurse | DX: E11.65 Type 2 diabetes mellitus with hyperglycemia (principal); E03.9 Hypothyroidism, unspecified; I10 Essential (primary) hypertension | CPT/HCPCS: 36416; 80053; 82962; 83036; 84443; 85025; 85651; 86140 ==

== ENCOUNTER 2021-05-16 12:00 | Outpatient (CLI) | payer MEDICARE, OTHER, SELFPAY ==
--- NOTE | 2021-05-16 12:05 | XR_ITS ---
WS: [id number] LEFT SHOULDER: 2 VIEW(S) TECHNIQUE: Internal and external rotation. HISTORY: M25.512 - Pain in left shoulder COMPARISON: 01/12/2016 Mild narrowing of the glenohumeral joint. Irregularity involving the surface of the glenoid. Mild tom rowing of the AC joint. As seen on the prior examination there is a conoid tubercle. This is a bony projection along the infe rior surface of the distal clavicle which extends to articulate with the coracoid process. Typically these are asymptomatic. Small amount calcification in the aortic arch. XR/XR shoulder LT min 2V* [id number] IMPRESSION: 1. Mild degenerative changes at the glenohumeral joint and AC joint. Mild prog ression since 2015. 2. Normal variant conoid tubercle.
== END 2021-05-16 12:01 | disposition home or self-care (01) ==
LOC: RAD 12:04
PROVIDERS: PCP Registered Nurse; Visit Provider Registered Nurse
DX: M25.512 Pain in left shoulder (principal)
CPT/HCPCS: 73030

== ENCOUNTER → 2021-08-08 13:34 | Outpatient (BNVA) | payer MEDICARE, OTHER, SELFPAY | PROVIDERS: PCP Registered Nurse; Visit Provider Registered Nurse | DX: E11.65 Type 2 diabetes mellitus with hyperglycemia (principal); I10 Essential (primary) hypertension; M19.011 Primary osteoarthritis, right shoulder | CPT/HCPCS: 80053; 83036; 84443 ==

== ENCOUNTER → 2021-08-23 10:19 | Outpatient (BNVA) | payer MEDICARE, OTHER, SELFPAY | PROVIDERS: PCP Registered Nurse; Visit Provider Registered Nurse | DX: M19.012 Primary osteoarthritis, left shoulder (principal); R53.83 Other fatigue | CPT/HCPCS: 85651; 86038; 86140; 86431 ==

== ENCOUNTER 2021-09-01 10:15 | Outpatient (RCR) | payer MEDICARE, OTHER, SELFPAY | END 2021-09-05 23:59 | disposition home or self-care (01) | LOC: SPT 10:15 | PROVIDERS: PCP Registered Nurse; Referring Provider Registered Nurse; Visit Provider Registered Nurse | DX: M19.011 Primary osteoarthritis, right shoulder (principal) | CPT/HCPCS: 97161 ==

== ENCOUNTER 2021-09-06 06:00 | Outpatient (RCR) | payer MEDICARE, OTHER, SELFPAY | END 2021-10-05 23:59 | disposition home or self-care (01) | LOC: SPT 06:00 | PROVIDERS: PCP Registered Nurse; Referring Provider Registered Nurse; Visit Provider Registered Nurse | DX: M19.011 Primary osteoarthritis, right shoulder (principal) | CPT/HCPCS: 97110; 97140 ==

== ENCOUNTER → 2021-10-04 09:48 | Outpatient (BNVA) | payer MEDICARE, OTHER, SELFPAY | PROVIDERS: PCP Registered Nurse; Referring Provider Registered Nurse; Visit Provider Orthopaedic Surgery | DX: M75.00 Adhesive capsulitis of unspecified shoulder (principal) | CPT/HCPCS: 99203 ==

== ENCOUNTER 2021-10-06 06:00 | Outpatient (RCR) | payer MEDICARE, OTHER, SELFPAY | END 2021-11-05 23:59 | disposition home or self-care (01) | LOC: SPT 06:00 | PROVIDERS: PCP Registered Nurse; Referring Provider Registered Nurse; Visit Provider Registered Nurse | DX: M19.011 Primary osteoarthritis, right shoulder (principal) | CPT/HCPCS: 97110; 97140 ==

== ENCOUNTER → 2022-02-06 14:30 | Outpatient (BNVA) | payer MEDICARE, OTHER, SELFPAY | PROVIDERS: PCP Registered Nurse; Visit Provider Registered Nurse | DX: E11.9 Type 2 diabetes mellitus without complications (principal); Z79.4 Long term (current) use of insulin | CPT/HCPCS: 80053; 83036 ==

== ENCOUNTER 2022-02-12 11:46 | Outpatient (CLI) | payer MEDICARE, OTHER, SELFPAY ==
[2022-02-12 12:00] VITALS: BMI 30.7
--- NOTE | 2022-02-12 12:10 | ECG_ITS ---
[facility] Test Date: 2022-02-12 Pat Name: Carol Ellis Department: Room: Gender: Female System Consultant: Leonila Conrad : 1945 Requested By: Kevin Flores Order Number: [id number] Rick MD: Nate Lundberg M.D. Interpretive Statements NAME OF STUDY: TREADMILL STRESS TEST INDICATION: Shortness of Breath, PROCEDURE: At the baseline, the patient's blood pressure was 121/83 with a heart rate of 90. The baseline electrocardiogram showed normal sinus rhythm with normal ST-Ts. Frequent PVCs in the form of bigeminy. Possible old septal myocardial infarction. The patient exercised for 5 minutes and 33 seconds on a standard Janes protocol. Patient attained a maximum heart rate of 125 beats per minute(86% of the maximum predicted heart rate) with a blood pressure at the peak exercise of 170/44 mm Hg. The EKG at the peak exercise revealed disappearance of the ventricular arrhythmia. ST-T changes were noted in the inferior and anterolateral leads.. Patient did not have any chest pain or any significant new cardiac arrhythmias with the exercise During the recovery phase, there were no new changes. Blood pressure at the end of the recovery phase was 137/66 mm Hg with a heart rate of 81 per minute. CONCLUSION: 1. Nonspecific EKG changes with the treadmill exercise 2. No exercise-induced chest pain or cardiac arrhythmia. Resolution of the baseline ventricular arrhythmia with a peak exercise 3. Impaired exercise tolerance, attained a maximum of 5.4 METs Electronically Signed On 02-16-2022 8:41:15 QUILL COLLECTOR by Nate Lundberg M.D. [email or web address]
[2022-02-12 12:41] VITALS: BP 137/66; PULSE 81
== END 2022-02-12 11:47 | disposition home or self-care (01) ==
LOC: CDL 11:49
PROVIDERS: PCP Registered Nurse; Visit Provider Registered Nurse
DX: R06.02 Shortness of breath (principal)
CPT/HCPCS: 93017

== ENCOUNTER 2022-03-06 11:19 | Outpatient (CLI) | payer MEDICARE, OTHER, SELFPAY | END 2022-03-06 11:20 | disposition home or self-care (01) | LOC: RT 11:20 | PROVIDERS: PCP Registered Nurse; Visit Provider Registered Nurse | DX: R06.09 Other forms of dyspnea (principal); U09.9 Post COVID-19 condition, unspecified | CPT/HCPCS: 94060; 94726; 94729 ==

== ENCOUNTER → 2022-06-01 13:29 | Outpatient (BNVA) | payer MEDICARE, OTHER, SELFPAY | PROVIDERS: PCP Registered Nurse; Visit Provider Registered Nurse | DX: N39.0 Urinary tract infection, site not specified (principal) | CPT/HCPCS: 81000; 87077; 87086; 87184 ==

== ENCOUNTER → 2022-08-21 09:07 | Outpatient (BNVA) | payer MEDICARE, OTHER, SELFPAY | PROVIDERS: PCP Registered Nurse; Visit Provider Registered Nurse | DX: E11.9 Type 2 diabetes mellitus without complications (principal); Z79.4 Long term (current) use of insulin | CPT/HCPCS: 80053; 80061; 83036; 83721; 84443; 85025 ==

== ENCOUNTER → 2022-09-05 09:31 | Outpatient (BNVA) | payer MEDICARE, OTHER, SELFPAY | PROVIDERS: PCP Registered Nurse; Visit Provider Registered Nurse | DX: L98.9 Disorder of the skin and subcutaneous tissue, unspecified (principal) | CPT/HCPCS: 88304 ==

== ENCOUNTER → 2022-09-12 09:28 | Outpatient (BNVA) | payer MEDICARE, OTHER, SELFPAY | PROVIDERS: PCP Registered Nurse; Visit Provider Podiatrist Foot & Ankle Surgery | DX: S92.505A Nondisplaced unspecified fracture of left lesser toe(s), initial encounter for closed fracture (principal); W22.8XXA Striking against or struck by other objects, initial encounter | CPT/HCPCS: 73630; 99203 ==

== ENCOUNTER → 2022-11-27 09:44 | Outpatient (BNVA) | payer MEDICARE, OTHER, SELFPAY | PROVIDERS: PCP Registered Nurse; Visit Provider Podiatrist Foot & Ankle Surgery | DX: M72.2 Plantar fascial fibromatosis | CPT/HCPCS: 73630; 99213 ==

== ENCOUNTER → 2022-12-06 15:40 | Outpatient (BNVA) | payer MEDICARE, OTHER, SELFPAY | PROVIDERS: PCP Registered Nurse; Referring Provider Registered Nurse; Visit Provider Orthopaedic Surgery | DX: S22.070A Wedge compression fracture of T9-T10 vertebra, initial encounter for closed fracture (principal); W01.0XXA Fall on same level from slipping, tripping and stumbling without subsequent striking against object, initial encounter; Z46.89 Encounter for fitting and adjustment of other specified devices; S22.070D Wedge compression fracture of T9-T10 vertebra, subsequent encounter for fracture with routine healing; X58.XXXD Exposure to other specified factors, subsequent encounter | CPT/HCPCS: 72072; 97760; 99204; L0456 ==

== ENCOUNTER 2022-12-06 16:25 | Outpatient (CLI) | payer MEDICARE, OTHER, SELFPAY | END 2022-12-06 16:26 | disposition home or self-care (01) | LOC: SPT 16:25 | PROVIDERS: PCP Registered Nurse; Visit Provider Orthopaedic Surgery | DX: Z46.89 Encounter for fitting and adjustment of other specified devices (principal); S22.070D Wedge compression fracture of T9-T10 vertebra, subsequent encounter for fracture with routine healing; X58.XXXD Exposure to other specified factors, subsequent encounter | CPT/HCPCS: 97760; L0456 ==

== ENCOUNTER 2022-12-28 14:44 | Outpatient (CLI) | payer MEDICARE, OTHER, SELFPAY ==
--- NOTE | 2022-12-28 15:15 | MR_ITS ---
WS: [id number] MRI THORACIC SPINE noncontrast HISTORY: Thoracic back pain, T9 compression fracture COMPARISON: Thoracic spine radiographs 12/06/2022 TECHNIQUE: Multiplanar sequences are performed in sagittal and axial planes. Normal posterior thoracic alignment. No acute marrow edema is noted within the vertebral bodies in a pattern consistent with acute fracture. There is a tiny amount of increased T2 signal in the superior anterior T9 vertebral body without retropulsion. Anterior wedging of T8 by approximately 20%. There is no marrow edema within this vertebral body. No cord compression. T1-2: Motion artifact. T2-3: Osteophytic ridging. Mild foraminal stenosis. T3-4: Bilateral mild facet arthritis. T4-5: Bilateral facet arthritis and foraminal narrowing. T5-6: Mild foraminal narrowing. T6-7: Mild foraminal narrowing. T7-8: Central disc protrusion with effacement of ventral CSF. Mild foraminal narrowing. T8-9: Mild facet arthritis. T9-10: Mild foraminal narrowing and facet arthritis. T10-11: Mild facet arthritis. T11-12: Normal. IMPRESSION: 1. T8 compression fracture by 20%. No marrow edema to suggest this is an acute fracture. 2. There is a tiny amount of marrow edema in the anterior T9 vertebral body. This could represent a f ocal acute injury or be reactive marrow edema from an osteophyte. 3. Small central disc protrusion at T7-8.
== END 2022-12-28 14:45 | disposition home or self-care (01) ==
PROVIDERS: PCP Registered Nurse; Visit Provider Orthopaedic Surgery
DX: S22.070A Wedge compression fracture of T9-T10 vertebra, initial encounter for closed fracture (principal); X58.XXXA Exposure to other specified factors, initial encounter; Y93.9 Activity, unspecified; Y92.9 Unspecified place or not applicable
CPT/HCPCS: 72146

== ENCOUNTER → 2023-01-07 12:58 | Outpatient (BNVA) | payer MEDICARE, OTHER, SELFPAY | PROVIDERS: PCP Registered Nurse; Visit Provider Registered Nurse | DX: N39.0 Urinary tract infection, site not specified (principal) | CPT/HCPCS: 81000; 87077; 87086; 87184 ==

== ENCOUNTER → 2023-01-23 09:46 | Outpatient (BNVA) | payer MEDICARE, OTHER, SELFPAY | PROVIDERS: PCP Registered Nurse; Visit Provider Physician Assistant | DX: S22.070A Wedge compression fracture of T9-T10 vertebra, initial encounter for closed fracture (principal); X58.XXXA Exposure to other specified factors, initial encounter | CPT/HCPCS: 99213 ==

== ENCOUNTER → 2023-03-07 10:34 | Outpatient (BNVA) | payer MEDICARE, OTHER, SELFPAY | PROVIDERS: PCP Registered Nurse; Visit Provider Registered Nurse | DX: N39.0 Urinary tract infection, site not specified (principal) | CPT/HCPCS: 81000; 87077; 87086; 87184 ==

== ENCOUNTER → 2023-06-17 13:28 | Outpatient (BNVA) | payer MEDICARE, OTHER, SELFPAY | PROVIDERS: PCP Registered Nurse; Visit Provider Nurse Practitioner | DX: E11.9 Type 2 diabetes mellitus without complications (principal); Z79.4 Long term (current) use of insulin | CPT/HCPCS: 80053; 83036; 84443; 85025 ==

== ENCOUNTER 2023-08-26 08:04 | Emergency (ER) | payer MEDICARE, OTHER, SELFPAY ==
[2023-08-26 08:07] VITALS: BP 114/63; PULSE 62; TEMP 36.5; O2SAT 90
[2023-08-26 08:14] VITALS: BP 121/59; PULSE 56; O2SAT 94
--- NOTE | 2023-08-26 08:21 | XRR_ITS ---
PROCEDURE INFORMATION: Exam: XR Chest Exam date and time: 08/26/2023 8:25 AM Age: 77 years old Clinical indication: Pain; Angina pectoris; Additional info: Chest pain TECHNIQUE: Imaging protocol: Radiologic exam of the chest. Views: 1 view. COMPARISON: CR XR chest 1V portable [id number] 12/09/2019 9:54 PM FINDINGS: Lungs: Interstitial opacities of lower lungs. Pleural spaces: Pleural thickening or effusion lower left chest is not excluded. No pneumothorax. Heart/Mediastinum: Cardiomegaly. Vasculature: Calcified thoracic aorta. Bones/joints: Degenerative change of the spine. XR/XR chest 1V portable [id number] IMPRESSION: 1. Cardiomegaly. 2. Interstitial opacities of lower lungs favoring scarring or atelectasis.
--- NOTE | 2023-08-26 08:21 | ECG_ITS ---
[facility] Test Date: 2023-08-26 Pat Name: Carol Ellis Department: Room: Gender: Female Chief Pilot: : 1945 Requested By: Johnny Rodriguez Order Number: [id number] Rick MD: Hair Ayala M.D. Measurements Intervals [place] Rate: 60 P: 96 OK: 193 QRS: 114 QRSD: 92 T: 147 QT: 432 QTc: 432 Interpretive Statements SINUS RHYTHM SEPTAL MYOCARDIAL INFARCTION , OF INDETERMINATE AGE [40+ ms Q WAVE IN V1/V2] Compared to ECG 12/09/2019 10:54:18 No significant changes Electronically Signed On 08-26-2023 12:51:32 CDT by Hair Ayala M.D. [email or web address] Guide To/[email or web address]/[id number] f
[2023-08-26 08:28] LABS: Basophils # 0.1 10^3/uL (0.0-0.1); Basophils % 1.2 %; Eosinophils # 0.5 10^3/uL (0.0-0.8); Eosinophils % 6.3 %; Hematocrit 37.8 % (36-47); Lymphocytes # 1.4 10^3/uL (0.8-4.8); Lymphocytes % 16.3 %; Mean Corpuscular HGB Conc 32.5 g/dL (30-55); Mean Corpuscular Hemoglobin 31.1 pg (27-33); Mean Corpuscular Volume 95.7 fl (85-98); Mean Platelet Volume 10.1 fL (7.4-10.4); Monocytes # 0.6 10^3/uL (0.2-0.9); Monocytes % 7.1 %; Neutrophils # 5.72 10^3/uL (1.8-7.7); Neutrophils % 68.9 %; Nucleated Red Blood Cells % 0 %; Platelet Count 215 10^3/cmm (157-399); Red Blood Count 3.95 10^6/uL (3.85-5.65); Red Cell Distribution Width 12.6 % (12.1-15.1)
--- NOTE | 2023-08-26 08:28 | ED_ITS ---
HPI - Chest Pain 2 General: Chief Complaint: Chest Pain Stated Complaint: cp Time Seen by Provider: 08/26/23 08:04 History of Present Illness: 77-year-old female presents emergency ro om complaining of chest pain that began after she woke up this morning bilateral arm numbness all of this has resolved by the time she arrives here no known cardiac history. She had a stress test several years ago that was normal. No history of DVT. No shortness of breath at this time. She has not noticed anything that aggravates or relieves her symptoms. Associated symptoms: Deny abdominal pain, dyspnea or fever(s) Review of Systems 2 Const: Denies: fever(s) or chills Card: Denies: chest pain Resp: Denies: dyspnea GI: Denies: abdominal pain : Denies: dysuria, urinary frequency or urinary urgency Musc: Denies: neck pain or back pain Skin/Breast: Denies: rash PFSH ED 2 PFSH: Medical History Osteoarthritis Stable angina History of CVA (cerebrovascular accident) Combined hyperlipidemia associated with type 2 diabetes mellitus Hypertension Surgical History Hx of cholecystectomy Hx of section Hx of bladder repair surgery Hx of hysterectomy Family History Mother Clotting disorder Diabetes Cancer Father Cancer Mother Arthritis Social History Smoking and tobacco/nicotine status: former use of tobacco/nicotine Quit status (tobacco/nicotine): has quit using Year quit tobacco: 1988 Second hand smoke exposure: No Alcohol intake: never Substance/Drug Use: never Current occupational status: retired Physical Exam 2 Const: COMMON NORMALS: no acute distress GENERAL APPEARANCE: cooperative and comfortable ORIENTATION/CONSCIOUSNESS: Yes awake, Yes oriented to person, Yes oriented to place and Yes oriented to time HENMT: COMMON NORMALS: normocephalic, atraumatic and hearing grossly normal bilaterally HEAD & SCALP: normocephalic and atraumatic Resp: COMMON NORMALS: normal respiratory effort, No retractions, No use of accessory muscles and clear to auscultation bilaterally AUSCULTATION: clear to auscultation bilaterally Cardio: COMMON NORMALS: regular rate, regular rhythm and No murmurs present (Cardio) RATE: regular rate RHYTHM: regular rhythm GI: COMMON NORMALS: Soft to palpation and No hepatosplenomegaly present A USCULTATION: Yes normoactive bowel sounds PALPATION: Yes Soft to palpation, No Tenderness to palpation present (GI), No Guarding due to palpation present (GI) and Yes No hepatosplenomegaly present Extremity: COMMON NORMALS: normal to inspection, capillary refill normal, no clubbing, cyanosis or edema, no calf tenderness and no pedal edema Neuro: SENSORIUM/ORIENTATION: Yes oriented to person, Yes oriented to place and Yes oriented to time Skin: COMMON NORMALS: no rashes or lesions noted GENERAL SKIN EXAM: no rashes or lesions noted Course 2 Vital Signs: Vital signs: Vital Signs Temperature 97.7 F 08/26/23 13:15 Pulse Rate 55 L 08/26/23 13:15 Blood Pressure 129/63 08/26/23 13:15 Pulse Oximetry 97 08/26/23 13:15 Oxygen Delivery Me thod Room Air 08/26/23 10:28 Oxygen Flow Rate 2 08/26/23 08:14 MDM - Chest Pain Medical Decision Making Cardiac enzymes are negative. Will add Imdur 30 mg daily and stop amlodipine. Start baby aspirin daily also give sublingual nitro. Discharge patient home EKGs did not show any acute ST changes and troponins were normal. Set up for outpatient cardiac stress testing Medical Records I reviewed the patient's medical records. Lab Data I reviewed the patient's lab results. 08/26/23 08:15 08/26/23 08:15 Radiology Impressions Chest X-Ray 08/26/23 08:21 IMPRESSION: 1. Cardiomegaly. 2. Interstitial opacities of lower lungs favoring scarring or atelectasis. Laboratory Results WBC 8.30 10^3/uL (3.29-11.43) 08/26/23 08:15 RBC 3.95 10^6/uL (3.85-5.65) 08/26/23 08:15 Hgb 12.30 g/dL (11.27-16.99) 08/26/23 08:15 Hct 37.8 % (36-47) 08/26/23 08:15 MCV 95.7 fl (85-98) 08/26/23 08:15 MCH 31.1 pg (27-33) 08/26/23 08:15 MCHC 32.5 g/dL (30-55) 08/26/23 08:15 RDW 12.6 % (12.1-15.1) 08/26/23 08:15 Plt Count 215 10^3/cmm (157-399) 08/26/23 08:15 MPV 10.1 fL (7.4-10.4) 08/26/23 08:15 Neut % (Auto) 68.9 % 08/26/23 08:15 Lymph % (Auto) 16.3 % 08/26/23 08:15 Bibb % (Auto) 7.1 % 08/26/23 08:15 Eos % (Auto) 6.3 % 08/26/23 08:15 Baso % (Auto) 1.2 % 08/26/23 08:15 Neut # (Auto) 5.72 10^3/uL (1.8-7.7) 08/26/23 08:15 Lymph # (Auto) 1.4 10^3/uL (0.8-4.8) 08/26/23 08:15 Bibb # (Auto) 0.6 10^3/uL (0.2-0.9) 08/26/23 08:15 Eos # (Auto) 0.5 10^3/uL (0.0-0.8) 08/26/23 08:15 Baso # (Auto) 0.1 10^3/uL (0.0-0.1) 08/26/23 08:15 Nucleated RBC % (auto) 0 % 08/26/23 08:15 Nucleated RBCs # 0.0 /100WBC 08/26/23 08:15 Sodium 139 mmol/L (136-145) 08/26/23 08:15 Potassium 4.3 mmol/L (3.5-5.1) 08/26/23 08:15 Chloride 105 mmol/L (98-107) 08/26/23 08:15 Carbon Dioxide 24 mmol/L (22-29) 08/26/23 08:15 Anion Gap 14.3 (5-19) 08/26/23 08:15 BUN 16 mg/dL (8-23) 08/26/23 08:15 Creatinine 1.1 mg/dL (0.5-0.9) H 08/26/23 08:15 GFR Calculation Not Reportable 08/26/23 08:15 Glucose 161 mg/dL (65-115) H 08/26/23 08:15 Calculated Osmolality 293 mOsm/kg (285-295) 08/26/23 08:15 Calcium 9.0 mg/dL (8.5-10.5) 08/26/23 08:15 Total Bilirubin 0.3 mg/dL (0.15-1.2) 08/26/23 08:15 AST 72 U/L (0-32) H 08/26/23 08:15 ALT 52 U/L (0-33) H 08/26/23 08:15 Alkaline Phosphatase 92 U/L (35-105) 08/26/23 08:15 Troponin T Baseline 11 ng/L (0-10) H 08/26/23 08:15 Troponin T 120 Minute 9.45 ng/L (0-10) 08/26/23 10:23 Delta Troponin T -1.55 ABS# (0-10) L 08/26/23 10:23 Total Protein 6.1 g/dL (6.6-8.7) L 08/26/23 08:15 Albumin 4.0 g/dL (3.5-5.2) 08/26/23 08:15 Globulin 2.1 g/dL (1.3-4.6) 08/26/23 08:15 All radiology interpretation(s) finalized by discharge Discharge Plan Discharge Patient Disposition: Home Clinical Impression: Chest pain, HTN (hypertension) Condition: Stable Prescriptions: New isosorbide mononitrate 30 mg tablet extended release 24 hr 30 mg PO DAILY Qty: 30 0RF aspirin 81 mg tablet,delayed release (DR/EC) 81 mg PO DAILY Qty: 30 0RF nitroglycerin 0.4 mg tablet, sublingual 0.4 mg sublingual Q5M PRN (Reason: chest pain) Qty: 30 0RF Rx Instructions: do not exceed 3 doses per episode Discontinued amlodipine 5 mg tablet 5 mg PO DAILY No Action nitroglycerin [Nitrostat] 0.4 mg tablet, sublingual 0.4 mg SUBLINGUAL Q5M PRN (Reason: Chest Pain) Qty: 14 0RF albuterol sulfate 2.5 mg /3 mL (0.083 %) solution for nebulization 2.5 mg inhalation TID PRN (Reason: bronchospasm) 10 Days Qty: 90 0RF (DME) Aeroneb Go Nebulizer Mis See Rx Instructions .Route Qty: 1 0RF Rx Instructions: As directed Trelegy Ellipta 100-62.5-25 mcg blister with device 1 inh inhalation DAILY Qty: 1 3RF levothyroxine 88 mcg tablet 88 mcg PO DAILY 90 Days Qty: 90 3RF (DME) TLSO brace See Rx Instructions .Route .MEDSUPPLY Qty: 1 0RF Rx Instructions: As directed (DME) FreeStyle Hiwot 14 Day Sensor Kit See Rx Instructions .MEDSUPPLY Qty: 2 12RF Rx Instructions: Change every 14 days; Use as directed to check blood sugar (DME) FreeStyle Hiwot 14 Day [place] Misc See Rx Instructions .MEDSUPPLY Qty: 1 0RF Rx Instructions: Use as directed for checking blood sugar insulin glargine [Basaglar KwikPen U-100 Insulin] 100 unit/mL (3 mL) insulin pen See Rx Instructions .ROUTE .COMPLEX Qty: 15 3RF Dose Instruction: INJECT 13 UNITS UNDER THE SKIN (SUBCUTANEOUSLY) DAILY FOR 30 DAYS; PATIENT WILL NEED AN APPOINTMENT FOR MORE REFILLS Rx Instructions: INJECT 23 UNITS UNDER THE SKIN (SUBCUTANEOUSLY) DAILY FOR 30 DAY (DME) pen needle, diabetic [Easy Touch Pen Needle] 30 gauge x 5/16 needle See Rx Instructions .Route Qty: 100 0RF Rx Instructions: As directed metoprolol succinate 25 mg tablet extended release 24 hr 25 mg PO DAILY 90 Days Qty: 90 1RF tramadol 50 mg tablet 50 mg PO BID PRN (Reason: pain) 30 Days Qty: 30 0RF potassium gluconate 595 mg (99 mg) Tablet 595 mg PO DAILY calcium carbonate [Calcium 500] 500 mg calcium (1,250 mg) tablet,chewable 500 mg PO DAILY Vitamin D3 50 mcg (2,000 unit) Tablet 100 mcg PO DAILY simvastatin 40 mg tablet 40 mg PO QPM lisinopril 30 mg tablet 30 mg PO DAILY sertraline 50 mg tablet 50 mg PO DAILY Discharge Orders: Discharge ED (Routine); Ordered 08/26/23 Ordered By: Johnny Terrell Referrals: Aliyah Cooley FNP [Primary Care Provider] - Discharge Diet: Usual diet Discharge Activity: Limit activity as instructed Patient Instructions: Opioid Safety, Pain Management Activity Restrictions/Additional Instructions: Thank you for choosing [facility] for your healthcare needs today. Please realize this is an emergency room and that we are providing you with a medical screening exam and this may not be complete and all inclusive of all the testing and or work up that you may need to determine your ailment or severity of your illness. It is very important that you follow up as instructed or that you return to the Emergency Department should you have concerns or if your condition changes or worsens in any way. You are seen today for chest pain. Your cardiac enzymes and EKG were normal. Will discharge you home. Recommend you stop the amlodipine and start isosorbide mononitrate 30 mg once daily continue all of your other medications. You should also take a baby aspirin daily. Case management make arrangements for you to have an outpatient Lexiscan sestamibi stress test. Return to the emergency room if you have further chest pain. Coding Level of Care Code ED Tie Worker for Tonia Vázquez
[2023-08-26 08:54] LABS: Alanine Aminotransferase 52 U/L (0-33); Alkaline Phosphatase 92 U/L (35-105); Anion Gap 14.3 (5-19); Aspartate Amino Transferase 72 U/L (0-32); Blood Urea Nitrogen 16 mg/dL (8-23); Carbon Dioxide 24 mmol/L (22-29); Chloride 105 mmol/L (98-107); Creatinine Clr Calc Pharmacy 45.9232; Globulin 2.1 g/dL (1.3-4.6); Glucose 161 mg/dL (65-115); Osmolality Calculated 293 mOsm/kg (285-295); Potassium 4.3 mmol/L (3.5-5.1); Sodium 139 mmol/L (136-145); Total Bilirubin 0.3 mg/dL (0.15-1.2); Total Protein 6.1 g/dL (6.6-8.7)
[2023-08-26 08:57] LABS: Troponin(5th) Baseline 11 ng/L (0-10)
[2023-08-26 09:46] VITALS: BP 107/49; PULSE 52; O2SAT 95
[2023-08-26 10:28] VITALS: BP 129/63; PULSE 55; O2SAT 97
--- NOTE | 2023-08-26 10:32 | ECG_ITS ---
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 Measurements Intervals [place] Rate: 51 P: 40 OK: 193 QRS: 50 QRSD: 89 T: 67 QT: 462 QTc: 428 Interpretive Statements SINUS BRADYCARDIA SEPTAL MYOCARDIAL INFARCTION , OF INDETERMINATE AGE [40+ ms Q WAVE IN V1/V2] Compared to ECG 08/26/2023 08:09:30 Sinus rhythm no longer present Myocardial infarct finding still present Electronically Signed On 08-26-2023 12:54:34 CDT by Hair Ayala M.D. [email or web address]/store/[id number]
[2023-08-26 10:45] LABS: Troponin 5 2HR 9.45 ng/L (0-10)
[2023-08-26 10:46] LABS: Troponin 5 2HR Delta -1.55 ABS# (0-10)
[2023-08-26 13:15] VITALS: BP 129/63; PULSE 55; TEMP 36.5; O2SAT 97
--- NOTE | 2023-08-29 12:26 | DCPLANNER ---
faxed lexiscan order to scheduling for er f/u
== END 2023-08-26 13:19 | disposition home or self-care (01) ==
PROVIDERS: Emergency Provider Family Medicine; PCP Nurse Practitioner
DX: R07.9 Chest pain, unspecified (principal); I10 Essential (primary) hypertension
CPT/HCPCS: 36415; 71045; 80053; 84484; 85025; 93005; 99285

== ENCOUNTER 2023-09-16 10:18 | Outpatient (CLI) | payer MEDICARE, OTHER, SELFPAY ==
[2023-09-16 10:42] VITALS: BMI 28.1
--- NOTE | 2023-09-16 10:44 | ECG_ITS ---
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 Interpretive Statements NAME OF STUDY: LEXISCAN SESTAMIBI STRESS TEST INDICATION: [Chest Pain, ] Procedure: At the baseline, the blood pressure was 98/55 mmHg with a heart rate of 67 bpm. The electrocardiogram showed normal sinus rhythm, normal axis with normal ST and T's. The Lexiscan was infused over a period of 20 seconds. A total of 0.4 mg of Lexiscan was infused. The stress phase was continued for a total of 5 minutes. Heart rate was at the end of stress phase was 71 bpm and a blood pressure of 110/44 mmHg. The EKG at the peak infusion revealed normal sinus rhythm with no significant ST-T wave changes. Sestamibi was injected 20 seconds after the Lexiscan infusion. Blood pressure at the end of recovery phase was 113/42 mmHg with a heart rate of 68 bpm. Conclusion: 1. Normal EKG response to Lexiscan infusion 2. No Lexiscan induced chest pain or cardiac arrhythmia. 3. Normal blood pressure and heart rate response. 4. Sestamibi/sestamibi perfusion scan pending; see separate report. Electronically Signed On 09-23-2023 9:06:38 CDT by Hair Ayala M.D. [id number]
--- NOTE | 2023-09-16 10:44 | NMCV_ITS ---
NM latia perf SPECT r/s* [id number] Carol Ellis Age: 78 Gender: F : 1945 Exam Date: 09/16/2023 10:44 Ordering Phys: Johnny Terrell DO Technologist: MARIPOSA Kothari Exam Location: [facility] Indications: CP STRESS TEST Please see separate stress test report in [facility] for full findings IMAGE PROTOCOL Rest/Stress 1 Lexiscan Day Radiopharmaceutical Dose (mCi) Administration Site Administered by Rest: Tc-99m 10.5 IV MARIPOSA Kothari Sestamibi Stress:Tc-99m 33.0 IV MARIPOSA Kothari Sestamibi Rest: 16-Sep-2023 60 Discovery 630 Stress: 16-Sep-2023 30 Discovery 630 0.4mg Lexiscan. Supine position only as patient was unable to lay prone. SPECT RESULTS Technical Quality: Good Raw Data Analysis: Normal Image Corrections: No attenuation or motion correction applied Summed Stress Score: 9 Summed Rest Score: 4 Summed Difference Score: 5 PERFUSION FINDINGS There is medium sized, partially reversible perfusion defect seen in inferolateral and inferior wall. This is consistent with medium sized area of prior infarct with small to medium sized area of janay-infarct ischemia in the left circumflex artery and RCA territories. FUNCTIONAL RESULTS (calculated via Gated SPECT) Stress Image LV EF (%): 68 Stress EDV (mL):59 TID: 0.87 Stress ESV (mL):19 FUNCTIONAL FINDINGS: There is normal left ventricular systolic function. IMPRESSIONS 1. Abnormal myocardial perfusion defect with medium sized area of prior infarct with small to medium sized area of janay-infarct ischemia seen in the left circumflex artery and RCA territories. 2. LV systolic function is normal Hair Ayala MD (Electronically Signed) Final Date: 18 September 2023 09:39 S
[2023-09-16] MEDS: regadenoson 0.4 Mg/5 ml Syringe 0.400000000000000022 MG IVP (12:04)
[2023-09-16 12:24] VITALS: BP 113/42; PULSE 68
== END 2023-09-16 10:19 | disposition home or self-care (01) ==
PROVIDERS: PCP Nurse Practitioner; Visit Provider Family Medicine
DX: R07.9 Chest pain, unspecified (principal); R94.39 Abnormal result of other cardiovascular function study
CPT/HCPCS: 36415; 78452; 93017; 96374; A9500; J2785

== ENCOUNTER → 2023-09-17 14:09 | Outpatient (BNVA) | payer MEDICARE, OTHER, SELFPAY | PROVIDERS: PCP Nurse Practitioner; Visit Provider Nurse Practitioner | DX: E11.9 Type 2 diabetes mellitus without complications (principal); Z79.4 Long term (current) use of insulin; I10 Essential (primary) hypertension; R60.9 Edema, unspecified; Z09 Encounter for follow-up examination after completed treatment for conditions other than malignant neoplasm | CPT/HCPCS: 83036; 83880 ==

== ENCOUNTER → 2023-12-17 14:21 | Outpatient (BNVA) | payer MEDICARE, OTHER, SELFPAY | PROVIDERS: PCP Nurse Practitioner; Visit Provider Nurse Practitioner | DX: I10 Essential (primary) hypertension (principal); E11.9 Type 2 diabetes mellitus without complications; Z79.4 Long term (current) use of insulin | CPT/HCPCS: 80053; 83036; 84443; 85025 ==

== ENCOUNTER → 2024-01-15 10:21 | Outpatient (BNVA) | payer MEDICARE, OTHER, SELFPAY | PROVIDERS: PCP Nurse Practitioner; Referring Provider Nurse Practitioner; Visit Provider Internal Medicine | DX: E11.9 Type 2 diabetes mellitus without complications (principal); Z79.4 Long term (current) use of insulin; E78.2 Mixed hyperlipidemia | CPT/HCPCS: 99204 ==

== ENCOUNTER → 2024-02-26 12:00 | Outpatient (BNVA) | payer MEDICARE, OTHER, SELFPAY | PROVIDERS: PCP Nurse Practitioner; Visit Provider Internal Medicine | DX: E11.9 Type 2 diabetes mellitus without complications (principal); Z79.4 Long term (current) use of insulin; E78.2 Mixed hyperlipidemia | CPT/HCPCS: 99214 ==

== ENCOUNTER → 2024-05-28 11:07 | Outpatient (BNVA) | payer MEDICARE, OTHER, SELFPAY | PROVIDERS: PCP Nurse Practitioner; Visit Provider Internal Medicine | DX: E11.9 Type 2 diabetes mellitus without complications (principal); Z79.4 Long term (current) use of insulin; E78.2 Mixed hyperlipidemia | CPT/HCPCS: 99214 ==

== ENCOUNTER 2024-11-23 10:34 | Outpatient (CLI) | payer MEDICARE, OTHER, SELFPAY ==
[2024-11-23 11:29] LABS: Estmated Average Glucose 151; Hemoglobin A1C 6.9 % (4.0-6.0)
[2024-11-23 11:47] LABS: Alanine Aminotransferase 20 U/L (0-33); Albumin Level 4.2 g/dL (3.5-5.2); Alkaline Phosphatase 61 U/L (35-105); Anion Gap 14.4 (5-19); Aspartate Amino Transferase 19 U/L (0-32); Blood Urea Nitrogen 16 mg/dL (8-23); Calcium 9.8 mg/dL (8.5-10.5); Carbon Dioxide 27 mmol/L (22-29); Chloride 103 mmol/L (98-107); Cholesterol 105 mg/dL (0-200); Free T4 Free Thyroxine 1.15 ng/dL (0.82-1.77); Globulin 2.1 g/dL (1.3-4.6); Glucose 207 mg/dL (65-115); HDL Cholesterol 32 mg/dL (60-100); Osmolality Calculated 297 mOsm/kg (285-295); Potassium 4.4 mmol/L (3.5-5.1); Sodium 140 mmol/L (136-145); Thyroid Stimulating Hormone 0.52 uIU/mL (0.27-4.20); Total Protein 6.3 g/dL (6.6-8.7); Triglycerides 231 mg/dL (0-150)
[2024-11-23 11:48] LABS: Creatinine Urine, Random 133 mg/dL (28-217); Microalbum Creatinine Ratio Ur 15 mg/dL (0-20)
== END 2024-11-23 10:35 | disposition home or self-care (01) ==
LOC: LAB 10:35
PROVIDERS: PCP Student in an Organized Health Care Education/Training Program; Visit Provider Internal Medicine
DX: I63.81 Other cerebral infarction due to occlusion or stenosis of small artery (principal); E11.9 Type 2 diabetes mellitus without complications; Z79.4 Long term (current) use of insulin; E03.9 Hypothyroidism, unspecified
CPT/HCPCS: 36415; 80053; 80061; 82044; 83036; 84439; 84443

== ENCOUNTER → 2024-11-25 11:37 | Outpatient (BNVA) | payer MEDICARE, OTHER, SELFPAY | PROVIDERS: PCP Nurse Practitioner; Visit Provider Internal Medicine | DX: E11.9 Type 2 diabetes mellitus without complications (principal); Z79.4 Long term (current) use of insulin; E78.2 Mixed hyperlipidemia | CPT/HCPCS: 99214 ==